=== PATIENT | female | born 1955 | race Caucasian/White ===

== ENCOUNTER 2019-01-08 21:03 | Observation (INO) | payer SELFPAY ==
[~2019-01-08] VITALS: Ht 170.2 cm; Wt 94.4 kg
[2019-01-08] MEDS ORDERED: predniSONE 20 MG TAB PO STA (22:01)
[2019-01-08] MEDS ORDERED: RT-ALBUTEROL/IPRATROPIUM 3 ML (DUONEB) VIAL INH STA (22:01)
[2019-01-08 22:45] LABS: HEMOGLOBIN 13.9 G/DL (11.5-16.0); WHITE BLOOD COUNT 8.2 10^3/uL (4.3-11.0)
[2019-01-08 22:46] LABS: MEAN PLATELET VOLUME 9.1 FL (7.4-10.4); RED CELL DISTRIBUTION WIDTH 12.9 % (10.0-14.5)
--- NOTE | 2019-01-08 23:18 | ED Respiratory ---
General Chief Complaint: Respiratory Problems Stated Complaint: SOB,PASSED OUT, HAS ASTHMA & COPD History of Present Illness Date Seen by Provider: Jan 08, 2019 Time Seen by Provider: 21:51 This is a 63-year-old female with a history of asthma who presents to the emergency department with shortness of breath and syncope. She has had a syncopal episode similar to this in the past although she denies having had a medical workup at that time. She says that she feels like her shortness of breath is caused by her typical asthma exacerbation however she is out of her albuterol so she was not able to treat herself. This occurred while she was at work, it improved after she went into a freezer room, but then when she came out she reportedly put her hand on her coworkers shoulder and collapsed. She did not injure herself. She does not remember having chest pain or palpitations or worsening of her shortness of breath at the time that she syncopized. She has not had bloody or black stools. She denies known congestive heart failure or other heart problems. Again there has not been chest pain with any of this. No headache, no weakness numbness or tingling, no visual change. No other symptoms. Allergies and Home Medications Allergies Coded Allergies: No Known Drug Allergies (Unverified , 01/08/19) Patient Home Medication List Home Medication List Reviewed: Yes Review of Systems Review of Systems Constitutional: no symptoms reported EENTM: no symptoms reported Respiratory: see HPI Cardiovascular: No chest pain; syncope Gastrointestinal: no symptoms reported Genitourinary: no symptoms reported Musculoskeletal: no symptoms reported Skin: no symptoms reported Psychiatric/Neurological: No Symptoms Reported Hematologic/Lymphatic: No Symptoms Reported Immunological/Allergic: no symptoms reported Past Gqsnkzd-Lnzgyw-Deplmy Hx Patient Social History Recent Foreign Travel: No Contact w/Someone Who Travel: No Physical Exam Capillary Refill : Height: '" Weight: lbs. oz. 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, no motor/sensory deficits, alert, normal mood/affect, oriented x 3; No abnormal gait Skin: warm/dry Progress/Results/Core Measures Suspected Sepsis SIRS Temperature: Pulse: Respiratory Rate: Laboratory Tests 01/08/19 22:40: White Blood Count 8.2 Blood Pressure / Mean: Laboratory Tests 01/08/19 22:40: Creatinine 0.87, Platelet Count 297, Total Bilirubin 0.2 Results/Orders Lab Results Laboratory Tests Test 01/08/19 00:40 01/08/19 22:40 Range/Units Troponin T < 6 < 6 <=10 NG/L White Blood Count 8.2 4.3-11.0 10^3/uL Red Blood Count 4.87 4.35-5.85 10^6/uL Hemoglobin 13.9 11.5-16.0 G/DL Hematocrit 43 35-52 % Mean Corpuscular Volume 89 80-99 FL Mean Corpuscular Hemoglobin 29 25-34 PG Mean Corpuscular Hemoglobin Concent 32 32-36 G/DL Red Cell Distribution Width 12.9 10.0-14.5 % Platelet Count 297 130-400 10^3/uL Mean Platelet Volume 9.1 7.4-10.4 FL D-Dimer 0.47 0.00-0.49 UG/ML Sodium Level 138 135-145 MMOL/L Potassium Level 4.4 3.6-5.0 MMOL/L Chloride Level 100 98-107 MMOL/L Carbon Dioxide Level 26 21-32 MMOL/L Anion Gap 12 5-14 MMOL/L Blood Urea Nitrogen 13 7-18 MG/DL Creatinine 0.87 0.60-1.30 MG/DL Estimat Glomerular Filtration Rate > 60 BUN/Creatinine Ratio 15 Glucose Level 113 H 70-105 MG/DL Calcium Level 9.4 8.5-10.1 MG/DL Corrected Calcium 9.1 8.5-10.1 MG/DL Total Bilirubin 0.2 0.1-1.0 MG/DL Aspartate Amino Transf (AST/SGOT) 20 5-34 U/L Alanine Aminotransferase (ALT/SGPT) 15 0-55 U/L Alkaline Phosphatase 72 40-136 U/L Pro-B-Type Natriuretic Peptide 115.2 H <75.0 PG/ML Total Protein 7.3 6.4-8.2 GM/DL Albumin 4.4 3.2-4.5 GM/DL My Orders Orders - ANDRE CELESTIN DO Albuterol/Ipra Inhalation Soln (Duoneb I (01/08/19 22:01) Prednisone Tablet (Deltasone Tablet) (01/08/19 22:01) Svn Small Volume Nebulizer (01/08/19 22:01) Ekg Tracing (01/08/19 22:03) Troponin T (01/08/19:03) Cbc No Diff (01/08/19 22:03) Comprehensive Metabolic Panel (01/08/19 22:03) Probnp Fs (01/08/19 22:03) Chest 1 View Ap/Pa Only (01/08/19 22:05) Ekg Tracing (01/08/19 23:31) Troponin T (01/08/19 23:31) Fibrin Degradation Products (01/08/19 23:42) Albuterol Pre-Mix Nebs (Rt) (Proventil (01/08/19 23:42) Svn Small Volume Nebulizer (01/08/19 23:42) Vital Signs/I&O Capillary Refill : Progress Note #1: Progress Note This is a 63-year-old female with a history of asthma who presents with shortness of breath and syncope. There was only minimal wheezing on exam and for this reason I did become more concerned about alternative etiology for example ACS or PE. She does however feel significant improvement after a breathing treatment and prednisone. She does feel some persistent wheezing and does have a mildly rhonchorous cough, we will give another breathing treatment now. ECG computer interpretation is incorrect, there are obviously P waves, and ventricular rate is no where near 166 bpm, I measure it at 84 bpm. We will repeat this study. It is concerning that it reports a QTC of 521 ms in the setting of syncope which itself occurred without a prodrome. We will make note of this interval on the repeat study. Patient is otherwise low risk for pulmonary embolus and I will send a d-dimer to rule this out. At the minimum based on her syncope without a prodrome she meets criteria for an observation admission, furthermore if there is a persistently prolonged QT interval she obviously needs to be admitted. We will continue to monitor while in the emergency department. Progress Note #2: Progress Note Dr. Patel accepts admission at [facility]. She is okay with cardiology consult being called in the morning. This was placed in written transition orders, as well as repeat ECG upon arrival to accepting facility. ECG EKG : Comment 2225: Sinus rhythm rate of approximately 84 beats per minute. HI interval approximately 160 ms. Left axis deviation. Inferior Q waves. Incomplete right bundle branch block. No ST or T-wave abnormalities. Slightly low voltages without electrical alternans. QTC measured at 521 ms. Diagnostic Imaging Diagonstic Imaging: Xray Comments EP interpretation: Trachea is midline, no obvious abnormality of the ribs, small lucency at the distal and of the left clavicle of uncertain significance. Cardiomediastinal silhouette is within normal limits. Diaphragmatic borders are sharp with no effusions or infiltrates. No obvious infiltrates in the rest of the lung akhtar. No pneumothoraces. Reviewed: Reviewed by Me Departure Impression Primary Impression: Dyspnea Additional Impressions: Syncope Prolonged Q-T interval on ECG Disposition: XFER SHT-TRM HOSP Condition: Stable Transfer Time Spoke to Accepting Phy: 01:10 Transfer Progress Notes Accepted by Dr. Patel at [facility] Method of Transfer: EMS Departure-Patient Inst. Referrals: NATALIA ODOM MD (PCP) Primary Care Physician ANDRE CELESTIN DO Jan 08, 2019 23:18
[2019-01-08 23:21] LABS: ALANINE AMINOTRANSFERASE 15 U/L (0-55); ALKALINE PHOSPHATASE 72 U/L (40-136); BILIRUBIN,TOTAL 0.2 MG/DL (0.1-1.0); BUN/CREATININE RATIO 15; CALCIUM 9.4 MG/DL (8.5-10.1); CARBON DIOXIDE 26 MMOL/L (21-32); CHLORIDE 100 MMOL/L (98-107); CREATININE SERUM 0.87 MG/DL (0.60-1.30); GFR ESTIMATED > 60; GLUCOSE 113 MG/DL (70-105); POTASSIUM 4.4 MMOL/L (3.6-5.0); SODIUM 138 MMOL/L (135-145)
[2019-01-08 23:22] LABS: ALBUMIN 4.4 GM/DL (3.2-4.5); TOTAL PROTEIN 7.3 GM/DL (6.4-8.2)
[2019-01-08] MEDS ORDERED: RT-ALBUTEROL SULF 2.5 MG/3 ML PRE-MIX VIAL INH STA (23:42)
[2019-01-09] VITALS (7 sets, daily range): BP systolic 104–136; BP diastolic 61–73
--- NOTE | 2019-01-09 05:45 | NUR ---
ARON WISE admitted to room 427-1, with an admitting diagnosis of SYNCOPE, on 01/09/19 from ER ([facility]) via cart, accompanied by EMS. ARON WISE introduced to surroundings, call light, bed controls, phone, TV, temperature control, lights, meal times, smoking policy, visitor policy, side rail policy, bathrooms and showers. Patient Rights given to patient in the handbook. ARON WISE verbalizes understanding that [facility] is not responsible for the loss or damage to any personal effects or valuables that are kept in the patients possession during their hospitalization.
--- NOTE | 2019-01-09 07:25 | NUR ---
ATTEMPTED TO PAGE DR. GASPAR TO INFORM HIM OF CONSULT FOR PATIENT. ALSO ATTEMPTED TO PAGE MEI. NO RETURN CALL AT THIS TIME. INFORMED DAY SHIFT THAT CHASITY WAS NOT REACHED.
--- NOTE | 2019-01-09 07:28 | Diagnostic Imaging Report ---
INDICATION: Shortness of breath. FINDINGS: Heart size is normal. The mediastinum is unremarkable. No pleural effusion, pneumothorax or pneumonia. IMPRESSION: No acute cardiopulmonary abnormality. Dictated by: Dictated on workstation # [id number]
[2019-01-09] MEDS ORDERED: RT-ALBUTEROL SULF 2.5 MG/3 ML PRE-MIX VIAL IH PRN (08:00)
[2019-01-09] MEDS ORDERED: CATHETER FLUSH 10 ML SYR IV PRN (08:15)
--- NOTE | 2019-01-09 09:14 | History & Physicial (CHS) ---
HPI History of Present Illness: 63 yo female brought to ER after episode of syncope. She states she has asthma and was feeling some shortness of breath coming on while at work, so she stepped into the freezer to clear her lungs, took a few breaths in there and then stepped out and does not recall what happened next, woke up to her coworkers having caught her falling down. She denies loss of urine or bowels. She does not know how long she was out. She denies any chest pain or palpitations and had no dizziness prior to the episode. She has had this happen once several years ago and was seen in an ER and discharged from there. She is out of her asthma inhalers. Date seen by provider: Jan 09, 2019 Time Seen by Provider: 09:10 Attending Physician Cj Patel MD PCP Ced Vee MD Consult Date of Admission Jan 09, 2019 at 01:46 Home Medications Home Medications Reviewed patient Home Medication Reconciliation performed by pharmacy medication reconciliations medical technician assistant and/or nursing. Patients Allergies have been reviewed. Allergies Coded Allergies: No Known Drug Allergies (Unverified , 01/08/19) NWD-Jjnsep-Aajmrd Hx Patient Social History Recent Foreign Travel: No Contact w/other who traveled: No Recent Infectious Disease Expo: No Past Medical History PMHx: Asthma Constipation SurgHx: Family Medical History Family History: Patient reports no known family medical history. Review of Systems ([facility]) Constitutional: No fever EENTM: No nose congestion Respiratory: see HPI Cardiovascular: No chest pain, No palpitations Gastrointestinal: No abdominal pain, No diarrhea, No nausea, No vomiting Genitourinary: no symptoms reported Musculoskeletal: no symptoms reported Skin: No rash Psychiatric/Neurological: No Symptoms Reported Reviewed Test Results Reviewed Test Results Lab Laboratory Tests Test 01/08/19 00:40 01/08/19 22:40 01/09/19 06:51 01/09/19 12:05 Range/Units Troponin T < 6 < 6 <=10 NG/L White Blood Count 8.2 4.3-11.0 10^3/uL Red Blood Count 4.87 4.35-5.85 10^6/uL Hemoglobin 13.9 11.5-16.0 G/DL Hematocrit 43 35-52 % Mean Corpuscular Volume 89 80-99 FL Mean Corpuscular Hemoglobin 29 25-34 PG Mean Corpuscular Hemoglobin Concent 32 32-36 G/DL Red Cell Distribution Width 12.9 10.0-14.5 % Platelet Count 297 130-400 10^3/uL Mean Platelet Volume 9.1 7.4-10.4 FL D-Dimer 0.47 0.00-0.49 UG/ML Sodium Level 138 135-145 MMOL/L Potassium Level 4.4 3.6-5.0 MMOL/L Chloride Level 100 98-107 MMOL/L Carbon Dioxide Level 26 21-32 MMOL/L Anion Gap 12 5-14 MMOL/L Blood Urea Nitrogen 13 7-18 MG/DL Creatinine 0.87 0.60-1.30 MG/DL Estimat Glomerular Filtration Rate > 60 BUN/Creatinine Ratio 15 Glucose Level 113 H 70-105 MG/DL Calcium Level 9.4 8.5-10.1 MG/DL Corrected Calcium 9.1 8.5-10.1 MG/DL Total Bilirubin 0.2 0.1-1.0 MG/DL Aspartate Amino Transf (AST/SGOT) 20 5-34 U/L Alanine Aminotransferase (ALT/SGPT) 15 0-55 U/L Alkaline Phosphatase 72 40-136 U/L Pro-B-Type Natriuretic Peptide 115.2 H <75.0 PG/ML Total Protein 7.3 6.4-8.2 GM/DL Albumin 4.4 3.2-4.5 GM/DL Troponin I < 0.028 < 0.028 <0.028 NG/ML Radiology CXR 01/08: no acute abnormalities Physical Exam-(CHC) Physical Exam Vital Signs VS - Last 72 Hours, by Label 01/08/19 01/09/19 01/09/19 01/09/19 22:45 03:38 05:45 05:45 Temp 98.3 97.9 97.9 Pulse 97 78 68 Resp 16 16 16 B/P (MAP) 147/68 (94) 108/58 (75) 124/68 (86) Pulse Ox 95 97 95 95 O2 Delivery Room Air Room Air 01/09/19 01/09/19 01/09/19 01/09/19 06:18 06:21 06:41 07:00 Temp 98.2 98.2 Pulse 69 69 86 91 Resp 18 18 B/P (MAP) 117/61 117/61 (79) Pulse Ox 94 94 O2 Delivery Room Air Room Air 01/09/19 01/09/19 01/09/19 01/09/19 08:00 08:00 12:00 12:53 Temp 97.9 98.3 Pulse 82 85 88 Resp 18 20 B/P (MAP) 136/73 (94) 121/71 (88) Pulse Ox 94 94 92 O2 Delivery Room Air Room Air Room Air 01/09/19 15:52 Temp 97.2 Pulse 75 Resp 20 B/P (MAP) 114/73 (87) Pulse Ox 95 O2 Delivery Room Air Capillary Refill : Less Than 3 Seconds General Appearance: WD/WN, no apparent distress HEENT: PERRL/EOMI Respiratory: lungs clear, normal breath sounds Cardiovascular: regular rate, rhythm, no murmur Gastrointestinal: normal bowel sounds, non tender, soft Extremities: no pedal edema 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 Per ER, had prolonged QT on EKG and is not on any medications to cause this. Cardiology consulted, appreciate recommendations. (2) Asthma Status: Chronic Assessment & Plan: Albuterol prn, no clear evidence of exacerbation currently. (3) DVT prophylaxis Status: Acute Assessment & Plan: Enoxaparin Clinical Quality Measures DVT/VTE Risk/Contraindication: Risk Factor Score Per Nursin RFS Level Per Nursing on Admit: 4+=Very High CJ PATEL MD Jan 09, 2019 09:14
--- NOTE | 2019-01-09 09:29 | NUR ---
PATIENT STATES SHE IS NOT CURRENTLY TAKING ANY MEDICATION, PRESCRIPTION OR OTC.
[2019-01-09] MEDS ORDERED: FLU QUADRIvalent (5+ YOA) 2018-2019 (AFLURIA) 0.5 ML IM ONE (10:45)
[2019-01-09] MEDS: ENOXAPARIN 40 MG/0.4 ML (LOVENOX) SYR SQ SCH (13:37)
--- NOTE | 2019-01-09 13:37 | Consultation-Cardiology ---
HPI-Cardiology Cardiology Consultation: Date of Consultation 01/09/19 Time Seen by a Provider: 13:00 Date of Admission 01-08-19 Attending Physician Kaci Patel MD Admitting Physician Ced Vee MD Consulting Physician Hansa Healy MD HPI: Chief Complaint: Syncope Ms. Wise is a 63 year old female transferred to [facility] from the [facility] ED. She reports she has chronic dyspnea. She states she has had increasing SOB over the last few days with frequent cough. She states while at work last night she began to feel more SOB. She states she went into the walk in freezer at work. She has chronic asthma/COPD. She states the building in which she works was hot last night and when she feels she having asthma attacks she will go into the freezer and her symptoms will improve. She states it did help for a short period of time, but then she began to cough, felt warm and was unable to catch her breath. She reports she felt as though she was going to pass out. She reports a co-worker caught her and lowered her into a chair. She states she may have lost consciousness for approx 30 seconds, but she is unsure. No loss of bowel or bladder control. She denies any c/o CP, palpitations, loss of bowel of bladder control. No c/o LE swelling. She reports she has been prescribed inhalers, but can not afford them. She takes no medications. She reports she smokes approx 1/2 PPD of cigs. Review of Systems-Cardiology Review of Systems Constitutional: No chills, No fever Eyes: No vision change Ears/Nose/Throat: No epistaxis, No recent hearing loss Cardiovascular: As described under HPI Gastrointestinal: No constipation, No diarrhea, No nausea, No vomiting Genitourinary: No dysuria, No hematuria Musculoskeletal: other (chronic joint pain) Skin: No rash, No ulcerations Psychiatric/Neurological: As described under HPI; No anxiety, No depression, No seizure, No focal weakness Hematologic: No bleeding abnormalities [id number]-Rshjgb Hx Patient Social History Recent Foreign Travel: No Recent Infectious Disease Expo: No Hospitalization with Isolation: Denies Past Medical History PMH As described under Assessment. Family Medical History Family Medical History: No family h/o CAD. Family History: Patient reports no known family medical history. Allergies and Home Medications Allergies Coded Allergies: No Known Drug Allergies (Unverified , 01/08/19) Home Medications No Active Prescriptions or Reported Meds Patient Home Medication List Home Medication List Reviewed: Yes Physical Exam-Cardiology Physical Exam Vital Signs/I&O 01/09/19 01/09/19 01/10/19 01/10/19 19:49 20:05 00:31 01:00 Temp 97.7 98.7 Pulse 78 71 70 Resp 20 16 B/P (MAP) 104/68 (80) 117/65 (82) Pulse Ox 96 95 O2 Delivery Room Air Room Air Room Air 01/10/19 04:04 Temp 96.4 Pulse 78 Resp 18 B/P (MAP) 109/58 (75) Pulse Ox 95 O2 Delivery Room Air 01/10/19 00:00 Intake Total 3850 ml Output Total 1500 ml Balance 2350 ml Capillary Refill : Less Than 3 Seconds Constitutional: AAO x 3, well-developed, well-nourished HEENT: PERRL, oral hygience is good Neck: No carotid bruit; carotid pulses are 2 + bilaterally Respiratory: No accessory muscle use, No respiratory distress; chest expansion is symmetric, chest is bilaterally symmetric, rhonchi (scattered), other ( prolonged expiratory phase) Cardiovascular: regular rate-rhythm; No JVD; S1 and S2 Gastrointestinal: No tender; soft, round, audible bowel sounds Rectal: deferred Extremities: no lower extremity edema bilateral Neurologic/Psychiatric: grossly intact, power is 5/5 both on sides Skin: No rash, No ulcerations Data Review Labs Laboratory Tests 01/09/19 12:05: Troponin I < 0.028 01/10/19 04:35: White Blood Count 8.8, Red Blood Count 4.14L, Hemoglobin 11.7, Hematocrit 37, Mean Corpuscular Volume 90, Mean Corpuscular Hemoglobin 28, Mean Corpuscular Hemoglobin Concent 32, Red Cell Distribution Width 13.3, Platelet Count 244, Mean Platelet Volume 9.7, Neutrophils (%) (Auto) 69, Lymphocytes (%) (Auto) 21, Monocytes (%) (Auto) 8, Eosinophils (%) (Auto) 2, Basophils (%) (Auto) 0, Neutrophils # (Auto) 6.1, Lymphocytes # (Auto) 1.8, Monocytes # (Auto) 0.7, Eosinophils # (Auto) 0.1, Basophils # (Auto) 0.0, Sodium Level 141, Potassium Level 4.1, Chloride Level 109H, Carbon Dioxide Level 23, Anion Gap 9, Blood Urea Nitrogen 23H, Creatinine 0.83, Estimat Glomerular Filtration Rate > 60, BUN /Creatinine Ratio 28, Glucose Level 92, Calcium Level 9.1, Corrected Calcium 9.5 , Total Bilirubin 0.2, Aspartate Amino Transf (AST/SGOT) 17, Alanine Aminotransferase (ALT/SGPT) 11, Alkaline Phosphatase 55, Total Protein 5.7L, Albumin 3.5 Radiology NAME: ARON WISE MED REC#: [id number] PT STATUS: ADM Treva : 1955 PHYSICIAN: ANDRE CELESTIN DO ADMIT DATE: 01/09/19 Signed Date of Exam: 01/08/19 CHEST 1 VIEW AP/PA ONLY INDICATION: Shortness of breath. FINDINGS: Heart size is normal. The mediastinum is unremarkable. No pleural effusion, pneumothorax or pneumonia. IMPRESSION: No acute cardiopulmonary abnormality. Dictated by: Dictated on workstation # [id number] Dict: 01/09/19715 Trans: 01/09/19 0846 Interpreted by: ANNETTA CARRENO MD Electronically signed by: ANNETTA CARRENO MD 01/09/19 0846 ECG Impression ECG Initial ECG Rhythm: Normal Sinus Comment QT 408, QTc 444 A/P-Cardiology Assessment/Admission Diagnosis Syncopal episode of undetermined etiology Chest discomfort - no evidence of ACS Acute on chronic exacerbation of COPD Asthma Tobaccoism - cessation advised Non-compliance with medications Elevated BMI approx 33 Discussion and Recomendations Syncopal episode - possible cough syncope Chest tightness - no evidence of ACS Acute on chronic exacerbation of COPD/asthma - management per medical services Tobaccoism - cessation advised Monitor lab Further recs will be based on her hospital course We would like to thank medical services for this consult Clinical Quality Measures DVT/VTE Risk/Contraindication: Risk Factor Score Per Nursin RFS Level Per Nursing on Admit: 4+=Very High MEI [id number] Jan 09, 2019 13:37
[2019-01-09] MEDS: CATHETER FLUSH 10 ML SYR IV SCH ×2 (14:34→20:08)
--- NOTE | 2019-01-09 18:44 | Consultation-Cardiology ---
HPI-Cardiology Cardiology Consultation: Date of Consultation 01/09/19 Time Seen by a Provider: 18:10 Date of Admission Attending Physician Kaci Patel MD Admitting Physician Ced Vee MD Consulting Physician SHER GASPAR MD, MA, FACP, FACC, FSCAI, CCDS HPI: Chief Complaint: Syncope Ms. Alvarez is a 63 year old female transferred to [facility] from the [facility] ED. She reports she has chronic dyspnea. She states she has had increasing SOB over the last few days with frequent cough. She states while at work last night she began to feel more SOB. She states she went into the walk in freezer at work. She has chronic asthma/COPD. She states the building in which she works was hot last night and when she feels she having asthma attacks she will go into the freezer and her symptoms will improve. She states it did help for a short period of time, but then she began to cough, felt warm and was unable to catch her breath. She reports she felt as though she was going to pass out. She reports a co-worker caught her and lowered her into a chair. She states she may have lost consciousness for approx 30 seconds, but she is unsure. No loss of bowel or bladder control. She denies any c/o CP, palpitations, loss of bowel of bladder control. No c/o LE swelling. She reports she has been prescribed inhalers, but can not afford them. She takes no medications. She reports she smokes approx 1/2 PPD of cigs. Review of Systems-Cardiology Review of Systems Constitutional: No chills, No fever Eyes: No vision change Ears/Nose/Throat: No epistaxis, No recent hearing loss Cardiovascular: As described under HPI Gastrointestinal: No constipation, No diarrhea, No nausea, No vomiting Genitourinary: No dysuria, No hematuria Musculoskeletal: other (chronic joint pain) Skin: No rash, No ulcerations Psychiatric/Neurological: As described under HPI; No anxiety, No depression, No seizure, No focal weakness Hematologic: No bleeding abnormalities HJD-Utgvwz-Ssvrib Hx Patient Social History Recent Foreign Travel: No Recent Infectious Disease Expo: No Hospitalization with Isolation: Denies Past Medical History PMH As described under Assessment. Family Medical History Family Medical History: No family h/o CAD. Family History: Patient reports no known family medical history. Allergies and Home Medications Allergies Coded Allergies: No Known Drug Allergies (Unverified , 01/08/19) Home Medications No Active Prescriptions or Reported Meds Patient Home Medication List Home Medication List Reviewed: Yes Physical Exam-Cardiology Physical Exam Vital Signs/I&O 01/09/19 01/09/19 01/09/19 01/09/19 07:00 08:00 08:00 12:00 Temp 97.9 98.3 Pulse 91 82 85 Resp 18 20 B/P (MAP) 136/73 (94) 121/71 (88) Pulse Ox 94 94 92 O2 Delivery Room Air Room Air Room Air 01/09/19 01/09/19 12:53 15:52 Temp 97.2 Pulse 88 75 Resp 20 B/P (MAP) 114/73 (87) Pulse Ox 95 O2 Delivery Room Air Capillary Refill : Less Than 3 Seconds Constitutional: AAO x 3, well-developed, well-nourished HEENT: PERRL, oral hygience is good Neck: No carotid bruit; carotid pulses are 2 + bilaterally Respiratory: No accessory muscle use, No respiratory distress; chest expansion is symmetric, chest is bilaterally symmetric, rhonchi (scattered), other ( prolonged expiratory phase) Cardiovascular: regular rate-rhythm; No JVD; S1 and S2 Gastrointestinal: No tender; soft, round, audible bowel sounds Rectal: deferred Extremities: no lower extremity edema bilateral Neurologic/Psychiatric: grossly intact, power is 5/5 both on sides Skin: No rash, No ulcerations Data Review Labs Laboratory Tests 01/08/19 22:40: White Blood Count 8.2, Red Blood Count 4.87, Hemoglobin 13.9, Hematocrit 43, Mean Corpuscular Volume 89, Mean Corpuscular Hemoglobin 29, Mean Corpuscular Hemoglobin Concent 32, Red Cell Distribution Width 12.9, Platelet Count 297, Mean Platelet Volume 9.1, D-Dimer 0.47, Sodium Level 138, Potassium Level 4.4, Chloride Level 100, Carbon Dioxide Level 26, Anion Gap 12, Blood Urea Nitrogen 13, Creatinine 0.87, Estimat Glomerular Filtration Rate > 60, BUN/Creatinine Ratio 15, Glucose Level 113H, Calcium Level 9.4, Corrected Calcium 9.1, Total Bilirubin 0.2, Aspartate Amino Transf (AST/SGOT) 20, Alanine Aminotransferase ( ALT/SGPT) 15, Alkaline Phosphatase 72, Troponin T < 6, Pro-B-Type Natriuretic Peptide 115.2H, Total Protein 7.3, Albumin 4.4 01/09/19 06:51: Troponin I < 0.028 01/09/19 12:05: Troponin I < 0.028 A/P-Cardiology Assessment/Admission Diagnosis Syncopal episode of undetermined etiology Chest discomfort - no evidence of ACS Acute on chronic exacerbation of COPD Asthma Tobaccoism - cessation advised Non-compliance with medications Elevated BMI approx 33 Discussion and Recomendations Syncopal episode - possible cough syncope Chest tightness - no evidence of ACS Acute on chronic exacerbation of COPD/asthma - management per medical services Tobaccoism - cessation advised MPI to eval for ischemia Monitor lab Further recs will be based on her hospital course We would like to thank medical services for this consult Clinical Quality Measures DVT/VTE Risk/Contraindication: Risk Factor Score Per Nursin RFS Level Per Nursing on Admit: 4+=Very High SHER GASPAR MD FACP FAC CCDS Jan 09, 2019 18:44
[2019-01-09] MEDS ORDERED: REGADENOSON 0.4 MG/5 ML SYR (LEXISCAN) IV ONE (18:45)
[2019-01-10 00:31] VITALS: BP 117/65
[2019-01-10 04:04] VITALS: BP 109/58
[2019-01-10 04:51] LABS: BASOPHILS % (AUTO) 0 % (0-10); EOSINOPHILS # (AUTO) 0.1 10^3/uL (0.0-0.3); EOSINOPHILS % (AUTO) 2 % (0-10); HEMATOCRIT 37 % (35-52); HEMOGLOBIN 11.7 G/DL (11.5-16.0); LYMPHOCYTES # (AUTO) 1.8 X 10^3 (1.0-4.0); LYMPHOCYTES % (AUTO) 21 % (12-44); MEAN CORPUSCULAR HEMOGLOBIN 28 PG (25-34); MEAN CORPUSCULAR HGB CONC 32 G/DL (32-36); MEAN CORPUSCULAR VOLUME 90 FL (80-99); MEAN PLATELET VOLUME 9.7 FL (7.4-10.4); MONOCYTES # (AUTO) 0.7 X 10^3 (0.0-1.0); MONOCYTES % (AUTO) 8 % (0-12); NEUTROPHILS # (AUTO) 6.1 X 10^3 (1.8-7.8); NEUTROPHILS % (AUTO) 69 % (42-75); PLATELET COUNT 244 10^3/uL (130-400); RED CELL DISTRIBUTION WIDTH 13.3 % (10.0-14.5); WHITE BLOOD COUNT 8.8 10^3/uL (4.3-11.0)
[2019-01-10 05:10] LABS: ALANINE AMINOTRANSFERASE 11 U/L (0-55); ALBUMIN 3.5 GM/DL (3.2-4.5); ALKALINE PHOSPHATASE 55 U/L (40-136); BILIRUBIN,TOTAL 0.2 MG/DL (0.1-1.0); BUN/CREATININE RATIO 28; CALCIUM 9.1 MG/DL (8.5-10.1); CARBON DIOXIDE 23 MMOL/L (21-32); CHLORIDE 109 MMOL/L (98-107); CREATININE SERUM 0.83 MG/DL (0.60-1.30); GFR ESTIMATED > 60; GLUCOSE 92 MG/DL (70-105); POTASSIUM 4.1 MMOL/L (3.6-5.0); SODIUM 141 MMOL/L (135-145); TOTAL PROTEIN 5.7 GM/DL (6.4-8.2)
[2019-01-10] MEDS: CATHETER FLUSH 10 ML SYR IV SCH (06:46)
[2019-01-10] MEDS ORDERED: REGADENOSON 0.4 MG/5 ML SYR (LEXISCAN) IV ONE (08:45)
[2019-01-10 09:18] VITALS: BP 119/67
[2019-01-10 09:24] VITALS: BP 111/83
[2019-01-10 09:25] VITALS: BP 107/85
--- NOTE | 2019-01-10 10:02 | Progress Note-Cardiology ---
Cardiology SOAP Progress Note Subjective: Wants to go home. No further c/o syncope. Feels breathing is at her usual baseline. No c/o CP or palpitations. Objective: I&O/Vital Signs 01/10/19 01/10/19 01/10/19 01/10/19 00:31 01:00 04:04 07:03 Temp 98.7 96.4 Pulse 71 70 78 64 Resp 16 18 B/P (MAP) 117/65 (82) 109/58 (75) Pulse Ox 95 95 O2 Delivery Room Air Room Air 01/10/19 01/10/19 01/10/19 09:18 09:24 09:25 Pulse 61 87 77 Resp 18 18 18 B/P (MAP) 119/67 (84) 111/83 (92) 107/85 (92) Pulse Ox 96 96 96 O2 Delivery Room Air Room Air Room Air 01/10/19 00:00 Intake Total 3850 ml Output Total 1500 ml Balance 2350 ml Weight (Pounds): 208 Weight (Ounces): 1.0 Weight (Calculated Kilograms): 94.689670 Constitutional: AAO x 3, well-developed, well-nourished Respiratory: No accessory muscle use, No respiratory distress; chest expansion is symmetric, chest is bilaterally symmetric, rhonchi (scattered), other ( prolonged expiratory phase) Cardiovascular: regular rate-rhythm; No JVD; S1 and S2 Gastrointestional: No tender; soft, round, audible bowel sounds Extremities: no lower extremity edema bilateral Neurologic/Psychiatric: grossly intact, power is 5/5 both on sides Skin: No rash, No ulcerations Results/Procedures: Labs Laboratory Tests 01/09/19 12:05: Troponin I < 0.028 01/10/19 04:35: White Blood Count 8.8, Red Blood Count 4.14L, Hemoglobin 11.7, Hematocrit 37, Mean Corpuscular Volume 90, Mean Corpuscular Hemoglobin 28, Mean Corpuscular Hemoglobin Concent 32, Red Cell Distribution Width 13.3, Platelet Count 244, Mean Platelet Volume 9.7, Neutrophils (%) (Auto) 69, Lymphocytes (%) (Auto) 21, Monocytes (%) (Auto) 8, Eosinophils (%) (Auto) 2, Basophils (%) (Auto) 0, Neutrophils # (Auto) 6.1, Lymphocytes # (Auto) 1.8, Monocytes # (Auto) 0.7, Eosinophils # (Auto) 0.1, Basophils # (Auto) 0.0, Sodium Level 141, Potassium Level 4.1, Chloride Level 109H, Carbon Dioxide Level 23, Anion Gap 9, Blood Urea Nitrogen 23H, Creatinine 0.83, Estimat Glomerular Filtration Rate > 60, BUN /Creatinine Ratio 28, Glucose Level 92, Calcium Level 9.1, Corrected Calcium 9.5 , Total Bilirubin 0.2, Aspartate Amino Transf (AST/SGOT) 17, Alanine Aminotransferase (ALT/SGPT) 11, Alkaline Phosphatase 55, Total Protein 5.7L, Albumin 3.5 Laboratory Tests 01/08/19 22:40 01/10/19 04:35 A/P: Assessment: Syncopal episode of undetermined etiology - no further episodes Chest discomfort - no evidence of ACS Acute on chronic exacerbation of COPD Asthma Tobaccoism - cessation advised Non-compliance with medications Elevated BMI approx 33 Plan: Syncopal episode - possible cough syncope - no further episodes Chest tightness - no evidence of ACS - MPI pending Acute on chronic exacerbation of COPD/asthma - management per medical services Tobaccoism - cessation advised MEI RODRIGEZ Jan 10, 2019 10:02
[2019-01-10] MEDS ORDERED: RT-ALBUINH IH (11:27)
[2019-01-10 12:00] VITALS: BP 132/67
[2019-01-10] MEDS: ENOXAPARIN 40 MG/0.4 ML (LOVENOX) SYR SQ SCH (13:09)
--- NOTE | 2019-01-10 14:15 | Discharge Instructions ---
Discharge [facility] Discharge Medications New, Converted or Re-Newed RX: Transmitted to Pharmacy New Medications: Albuterol Sulfate (Proair Hfa) 1 Puff Puff 2 PUFF IH Q4H PRN for SHORTNESS OF BREATH, #1 INHALER 0 Refills 1 PUFF = 90 MCG Patient Instructions Goal/Follow Up Appt: Follow up with Dr. Vee on 01/14 at 9:45 am. 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 Return to The Hospital For: Worsening shortness of breath, chest pain, recurrent passing out Activity & Diet Discharge Diet: Regular Diet Activity as Tolerated: Yes Orders-Post D/C & Referrals Pneu Vac Indicated: Yes Copy Copies To 1: NATALIA VEE MD, BETHANY N MD Jan 10, 2019 11:28
--- NOTE | 2019-01-10 16:16 | NUR ---
At Discharge, spoke to patient about importance of smoking cesseation. Patient dismissive with information. Pages send to Dr. Healy and Birdie Grubbs before discharge. Spoke with Dr. Healy, who requests that patient should follow up with him in 2 to 3 weeks and that stress test was clear. Information relayed to patient.
--- NOTE | 2019-01-10 18:57 | Discharge Summary ---
Diagnosis/Chief Complaint Date of Admission Jan 09, 2019 at 01:46 Date of Discharge Jan 10, 2019 at 15:50 Admission Diagnosis Admission Diagnosis Syncope Discharge Diagnosis See problem list Problems/Diagnosis: (1) Syncope Assessment & Plan: Unclear etiology, concerning for possible cardiac cause given no presyncopal symptoms, however no clear evidence of cardiac issue either , troponin neg, BNP unremarkable and asymptomatic. Per ER, had prolonged QT on EKG and is not on any medications to cause this. Cardiology consulted, stress test completed, no evidence of cardiac cause, suspect possible cough syncope. Status: Acute (2) Asthma Assessment & Plan: Albuterol prn, no clear evidence of exacerbation currently. Stated she could not afford albuterol inhaler, vouchered at [facility] on d/c. Status: Chronic Chief Complaint/HPI Chief Complaint/HPI 63 yo female brought to ER after episode of syncope. She states she has asthma and was feeling some shortness of breath coming on while at work, so she stepped into the freezer to clear her lungs, took a few breaths in there and then stepped out and does not recall what happened next, woke up to her coworkers having caught her falling down. She denies loss of urine or bowels. She does not know how long she was out. She denies any chest pain or palpitations and had no dizziness prior to the episode. She has had this happen once several years ago and was seen in an ER and discharged from there. She is out of her asthma inhalers. Discharge Summary-Simple/Stand Consultations Discharge Physical Examination Allergies: Coded Allergies: No Known Drug Allergies (Unverified , 01/08/19) Vitals & I&Os Vital Sign - Last 12Hours Date Time Temp Pulse Resp B/P (MAP) Pulse Ox O2 Delivery O2 Flow Rate FiO2 01/10/19 12:00 96.4 73 18 132/67 (88) 97 Room Air Intake and Output 01/10/19 00:00 Intake Total 3850 ml Output Total 1500 ml Balance 2350 ml General Appearance: Alert, No Acute Distress Respiratory: Clear to Auscultation, Normal Air Movement Cardiovascular: Regular Rate, No Murmurs Neuro: Normal Speech Psych/Mental Status: Mental Status NL Hospital Course Was the Problem List Reviewed?: Yes See final discharge diagnosis. Radiology Reviewed CXR 01/08: no acute abnormalities Discharge Instructions to patient/family Please see electronic discharge instructions given to patient. Discharge Medications Reviewed and agree with Discharge Medication list on patient's Discharge Instruction sheet Clinical Quality Measures DVT/VTE Risk/Contraindication: Risk Factor Score Per Nursin RFS Level Per Nursing on Admit: 4+=Very High Copy Copies To 1: NATALIA ODOM MD, BETHANY N MD Jan 10, 2019 18:57
--- NOTE | 2019-01-10 22:37 | STRESS TEST ---
DATE OF SERVICE: 01/10/2019 RESTING AND POST REGADENOSON TECHNETIUM-99M TETROFOSMIN SPECT CT IMAGING Baseline images were carried out after injection of 10.95 mCi of technetium-99m Tetrofosmin. This was followed by 0.4 mg of adenosine and 31.5 mCi of technetium-99m Tetrofosmin for stress imaging. The electrocardiogram showed sinus rhythm at baseline. It did not change significantly with the regadenoson infusion. The patient tolerated the procedure well. She noted some shortness of breath following regadenoson infusion, which resolved in a few minutes. Review of images at rest and following stress does not indicate any significant perfusion defects consistent with significant myocardial ischemia or infarction. Gated images show normal global left ventricular systolic function and normal regional wall motion. Left ventricular ejection fraction is calculated to be 77%. Left ventricular end diastolic volume is 40 mL. TID is absent (1.05). CONCLUSIONS: 1. No evidence of any significant myocardial ischemia or infarction. 2. Normal regional wall motion. 3. Normal global left ventricular systolic function with a calculated ejection fraction of 77%. Job ID: [id number] DocumentID: [id number] Dictated Date: 01/10/2019 16:02:09 [employer] Date: 01/10/2019 22:36:55 Dictated By: SHER GASPAR MD, MA, FACP, FACC,
== END 2019-01-10 14:14 | disposition home or self-care (01) ==
LOC: ER FS 21:05 → 4TH 21:06 → UNDOADMOB 01-09 01:46 → UNDODISOB 01-10 15:50
PROVIDERS: ADMIT Family Medicine; ATTEND Family Medicine
DX: R55 Syncope and collapse (principal); I45.81 Long QT syndrome; J45.909 Unspecified asthma, uncomplicated; F17.210 Nicotine dependence, cigarettes, uncomplicated; R07.89 Other chest pain; Z91.120 Patient's intentional underdosing of medication regimen due to financial hardship; Z79.899 Other long term (current) drug therapy
CPT/HCPCS: 36415; 71045; 78452; 80053; 83880; 84484; 85025; 85027; 85379; 93005; 93017

== ENCOUNTER 2019-04-24 21:52 | Emergency (ER) | payer SELFPAY ==
[~2019-04-24] VITALS: Ht 170.2 cm; Wt 85.7 kg
[~2019-04-24 21:52] MED LIST: RT-ALBUINH IH
[2019-04-24] MEDS ORDERED: diphenhydrAMINE 25 MG TAB (BENADRYL) PO ONE (22:15)
[2019-04-24] MEDS ORDERED: predniSONE 20 MG TAB PO ONE (22:15)
[2019-04-24] MEDS ORDERED: FAMOTIDINE 20 MG (PEPCID) TABLET PO ONE (22:15)
[2019-04-24] MEDS ORDERED: DEXAMETHASONE 10 MG/ML (DECADRON) 1 ML VIAL IM ONE (22:15)
--- NOTE | 2019-04-24 22:16 | ED Integumentary General ---
General Chief Complaint: Allergic Reaction Stated Complaint: HIVES/RASH ON EYES Nursing Triage Note: Patient advises she was working out in the yard today and this evening began to develop a rash on her arms and face. She believes she may have poision yola. Source: patient, RN notes reviewed Exam Limitations: no limitations History of Present Illness Date Seen by Provider: Apr 24, 2019 Time Seen by Provider: 22:10 Initial Comments Patient presents c/ c/o worsening rash on her face and arms this evening. States she had been out working in her yard earlier today and may have got into some poison yola. Timing/Duration: this evening Severity: moderate Location: extremities (BUE) Possible Cause: other (? poison yola) Modifying Factors: improves with other (none) Associated Symptoms: denies symptoms (x/ as noted.), rash Allergies and Home Medications Allergies Coded Allergies: No Known Drug Allergies (Unverified , 01/08/19) Home Medications Albuterol Sulfate 1 Puff Puff, 2 PUFF IH Q4H PRN for SHORTNESS OF BREATH 1 PUFF = 90 MCG Prescribed by: CJ EDWARDS on 01/10/19 1127 Famotidine 20 Mg Tablet, 20 MG PO BID Prescribed by: ANNA MARIE ORTEGA on 04/25/19 0028 Prednisone 20 Mg Tab, 30 MG PO BID Prescribed by: ANNA MARIE ORTEGA on 04/25/19 0028 Patient Home Medication List Home Medication List Reviewed: Yes Review of Systems Review of Systems Constitutional: see HPI Skin: see HPI, rash All Other Systems Reviewed Negative Unless Noted: Yes (Negative excepted noted.) Past Pouqxvd-Ubzjyw-Asjyzi Hx Patient Social History Alcohol Use: Denies Use Recreational Drug Use: No Smoking Status: Current Everyday Smoker Type Used: Cigarettes Recent Foreign Travel: No Contact w/Someone Who Travel: No Recent Infectious Disease Expo: No Recent Hopitalizations: No Seasonal Allergies Seasonal Allergies: No Past Medical History Surgeries: Yes Section, Tubal Ligation Respiratory: Yes Asthma, COPD Cardiac: No Neurological: No Genitourinary: No Gastrointestinal: No Musculoskeletal: No Endocrine: No HEENT: No Cancer: No Psychosocial: No Integumentary: No Blood Disorders: No Family Medical History Patient reports no known family medical history. Physical Exam Vital Signs Vital Signs - First Documented 04/24/19 22:01 Temp 98.2 Pulse 84 Resp 14 B/P (MAP) 130/72 (91) Pulse Ox 98 O2 Delivery Room Air Capillary Refill : Less Than 3 Seconds General Appearance: WD/WN, no apparent distress, obese HEENT: other (urticarial appearing rash over majority of her face) Neck: normal inspection Cardiovascular: regular rate, rhythm Respiratory: no respiratory distress Extremities: other (urticarial rash of her BUE) Neurologic/Psychiatric: no motor/sensory deficits, alert, normal mood/affect, oriented x 3 Skin: warm/dry, rash (as described above) Skin Problem Location: face, upper extremities Skin Problem Character: blanching, erythema, urticarial Progress/Results/Core Measures Results/Orders My Orders Orders - ANNA MARIE ORTEGA DO Diphenhydramine Tablet (Benadryl Tablet) (04/24/19 22:15) Prednisone Tablet (Deltasone Tablet) (04/24/19 22:15) Famotidine Tablet (Pepcid Tablet) (04/24/19 22:15) Dexamethasone Injection (Decadron Inject (04/24/19 22:15) Medications Given in ED Current Medications Medications Dose Ordered Sig/Lisa Route Start Time Stop Time Status Last Admin Dose Admin Dexamethasone Sodium Phosphate 15 mg ONCE ONCE IM 04/24/19 22:15 04/24/19 22:16 DC 04/24/19 22:19 15 MG Diphenhydramine HCl 50 mg ONCE ONCE PO 04/24/19 22:15 04/24/19 22:16 DC 04/24/19 22:19 50 MG Famotidine 40 mg ONCE ONCE PO 04/24/19 22:15 04/24/19 22:16 DC 04/24/19 22:20 40 MG Prednisone 60 mg ONCE ONCE PO 04/24/19 22:15 04/24/19 22:16 DC 04/24/19 22:20 60 MG Vital Signs/I&O 04/24/19 04/24/19 22:01 23:39 Temp 98.2 98.2 Pulse 84 84 Resp 14 14 B/P (MAP) 130/72 (91) 130/72 (91) Pulse Ox 98 98 O2 Delivery Room Air Room Air Blood Pressure Mean: 91 Departure Impression Primary Impression: Urticaria Disposition: 01 HOME, SELF-CARE Condition: Improved Departure-Patient Inst. Decision time for Depature: 23:24 Referrals: NATALIA ODOM MD (PCP/Family) Primary Care Physician Patient Instructions: Hives Add. Discharge Instructions: All discharge instructions reviewed with patient and/or family. Voiced understanding. MAY REPEAT 50 mg OF BENADRYL EVERY 6 HOURS NEEDED. Scripts Famotidine (Pepcid) 20 Mg Tablet 20 MG PO BID for 5 Days, #10 TAB 0 Refills Prov: ANNA MARIE ORTEGA DO 04/25/19 Prednisone (Prednisone) 20 Mg Tab 30 MG PO BID for 5 Days, #15 TAB 0 Refills Prov: ANNA MARIE ORTEGA DO 04/25/19 ANNA MARIE ORTEGA DO Apr 24, 2019 22:16
[2019-04-24] MEDS ORDERED: PRD20T PO (23:27)
[2019-04-24] MEDS ORDERED: FAMO-119 PO (23:27)
[2019-04-24 23:39] VITALS: BP 130/72
[2019-04-25] MEDS ORDERED: FAMO-119 PO (00:28)
[2019-04-25] MEDS ORDERED: PRD20T PO (00:28)
== END 2019-04-24 23:41 | disposition home or self-care (01) ==
LOC: EDUNIT# 21:52 → ER FS 21:53
DX: L50.9 Urticaria, unspecified (principal); J44.9 Chronic obstructive pulmonary disease, unspecified; F17.210 Nicotine dependence, cigarettes, uncomplicated; Z79.52 Long term (current) use of systemic steroids; Z98.890 Other specified postprocedural states; Z98.51 Tubal ligation status
CPT/HCPCS: 99284

== ENCOUNTER 2019-05-03 10:39 | Emergency (ER) | payer SELFPAY ==
[~2019-05-03] VITALS: Ht 170.2 cm; Wt 86.2 kg
[~2019-05-03 10:39] MED LIST changes: +FAMO-119 PO; +PRD20T PO
[2019-05-03] MEDS ORDERED: NF-METHYLP PO (11:03)
--- NOTE | 2019-05-03 11:03 | ED Integumentary General ---
General Chief Complaint: Skin/Wound Problems Stated Complaint: RASH Nursing Triage Note: Patient c/o generalized rash. States she was seen in the ED a week ago and given a steriod shot and some other medications that she has since completed and the rash hasn't improved and it itches really badly. Source: patient Exam Limitations: no limitations History of Present Illness Date Seen by Provider: May 03, 2019 Time Seen by Provider: 10:50 Initial Comments 64-year-old female who presents with a rash. Patient was seen here 9 days ago and given steroids and Pepcid. She reports that the rash is getting better and then yesterday and today it got worse again. The rash is diffuse and very itchy. She has not followed up with her primary care physician for reevaluation. Patient denies any new irritants, fleas on her animals or any other causes of the rash. Allergies and Home Medications Allergies Coded Allergies: No Known Drug Allergies (Unverified , 01/08/19) Home Medications Albuterol Sulfate 1 Puff Puff, 2 PUFF IH Q4H PRN for SHORTNESS OF BREATH 1 PUFF = 90 MCG Prescribed by: CJ EDWARDS on 01/10/19 1127 Famotidine 20 Mg Tablet, 20 MG PO BID Prescribed by: ANNA MARIE ORTEGA on 04/25/19 0028 Prednisone 20 Mg Tab, 30 MG PO BID Prescribed by: ANNA MARIE ORTEGA on 04/25/19 0028 Patient Home Medication List Home Medication List Reviewed: Yes Review of Systems Review of Systems Constitutional: no symptoms reported Respiratory: no symptoms reported Cardiovascular: no symptoms reported Gastrointestinal: no symptoms reported Skin: see HPI Past Vuthehw-Icvjjv-Ozzoyo Hx Past Med/Social Hx: Reviewed Nursing Past Med/Soc Hx Patient Social History Type Used: Cigarettes Recent Foreign Travel: No Contact w/Someone Who Travel: No Recent Infectious Disease Expo: No Recent Hopitalizations: No Seasonal Allergies Seasonal Allergies: No Past Medical History Surgeries: Yes Section, Tubal Ligation Respiratory: Yes Asthma, COPD Cardiac: No Neurological: No Genitourinary: No Gastrointestinal: No Musculoskeletal: No Endocrine: No HEENT: No Cancer: No Psychosocial: No Integumentary: No Blood Disorders: No Family Medical History Patient reports no known family medical history. Physical Exam Vital Signs Capillary Refill : Less Than 3 Seconds General Appearance: WD/WN, no apparent distress HEENT: PERRL/EOMI Cardiovascular: normal peripheral pulses, regular rate, rhythm Respiratory: chest non-tender, lungs clear Gastrointestinal: non tender, soft Skin: rash (Diffuse papular rash that looks consistent with either contact dermatitis or something like a flea bite.) Skin Problem Location: generalized Progress/Results/Core Measures Results/Orders Blood Pressure Mean: 108 Progress Progress Note : Progress Note We'll discharge patient with a Medrol Dosepak. I recommend that she follow up with her primary care physician for further evaluation if no improvement. Also recommend she ensure that she does not have any fleas and checks on her contact irritants. Departure Impression Primary Impression: Contact dermatitis Qualified Codes: L25.9 - Unspecified contact dermatitis, unspecified cause Disposition: HOME, SELF-CARE Condition: Stable Departure-Patient Inst. Referrals: NATALIA ODOM MD (PCP/Family) Primary Care Physician Patient Instructions: Contact Dermatitis (DC), Dermatitis Scripts Methylprednisolone (Medrol) 4 Mg Tab 4 MG PO UD for 6 Days, #21 TAB as directed per dose pack Prov: JAYLA CUEVAS DO 05/03/19 JAYLA CUEVAS DO May 03, 2019 11:03
[2019-05-03 11:10] VITALS: BP 150/87
== END 2019-05-03 11:10 | disposition home or self-care (01) ==
LOC: EDUNIT# 10:39 → ER FS 10:41
DX: L25.9 Unspecified contact dermatitis, unspecified cause (principal); J44.9 Chronic obstructive pulmonary disease, unspecified; Z98.51 Tubal ligation status
CPT/HCPCS: 99282

== ENCOUNTER 2019-05-24 18:29 | Emergency (ER) | payer SELFPAY ==
[~2019-05-24] VITALS: Ht 170.2 cm; Wt 86.2 kg
[~2019-05-24 18:29] MED LIST changes: +NF-METHYLP PO
--- OUTSIDE RECORDS SUMMARY | 2019-05-24 18:35 | XMS REPORT ---
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 [id number] [address] Jan, IMMUNIZATIONS No Known Immunizations SOCIAL HISTORY Never Assessed REASON FOR VISIT [facility] follow up PLAN OF CARE Activity Details Follow Up prn Reason: VITAL SIGNS Height 5ft 6in in 2019-01-14 Weight 214lb lbs 2019-01-14 BMI 34.54 kg/m2 2019-01-14 Blood pressure systolic 132 mmHg 2019-01-14 Blood pressure diastolic 70 mmHg 2019-01-14 MEDICATIONS Medication Instructions Dosage Frequency Start Date End Date Duration Status Proventil HFA 108 (90 Base) MCG/ACT Inhalation every 6 hrs 2 puffs as needed 6h Active PredniSONE 10 MG Orally Once a day 1 tablet 24h Jan, 6 days Active Albuterol Sulfate (2.5 MG/3ML) 0.083% Inhalation Three times a day 3 ml as needed 8h Jan, Active RESULTS No Results PROCEDURES No Known procedures INSTRUCTIONS MEDICATIONS ADMINISTERED No Known Medications MEDICAL (GENERAL) HISTORY Type Description Date Medical History COPD (chronic obstructive pulmonary disease) Medical History Asthma Surgical History Hospitalization History [facility]- Syncopal Episode 01/2019
--- NOTE | 2019-05-24 19:00 | NUR ---
Report to Cleo CARLOS.
--- NOTE | 2019-05-24 19:21 | ED General ---
General Chief Complaint: General Problems/Pain Stated Complaint: SWOLLEN FEET AND LEG Nursing Triage Note: Pt presents ambulatory to Er with numerous family members. Pt states her feeet and legs swollen for a couple days. Nursing Sepsis Screen: No Definite Risk History of Present Illness Date Seen by Provider: May 24, 2019 Time Seen by Provider: 19:00 Initial Comments The patient presents for 2 days of edema and swelling to the legs. She has elevated them but the swelling has come down. She specifically denies shortness of breath chest pain tachypnea tachycardia fever. She does not take any medications. She has no known kidney disease no heart disease that she is aware of. She was admitted on January 10 of this year. At that time she had cardiac workup. Her creatinine was normal at that time. Her hemoglobin was normal. Her chest x- ray does not indicate a enlarged heart silhouette. This is normal. Her history is completely consistent with dependent edema only. The anemia is 2+ but not pitting at all. There is no tenderness to the calves. She is a smoker so she has chronic lung sounds consistent with smoker. There is no rales present. Her examination does not seem indicate any congestive heart failure or kidney d isease. Her history and also does not indicate either. She can be discharged here safely with instructions for dependent edema including wearing support hose and elevating legs. She states follow-up with primary care. Allergies and Home Medications Allergies Coded Allergies: No Known Drug Allergies (Unverified , 01/08/19) Home Medications Albuterol Sulfate 1 Puff Puff, 2 PUFF IH Q4H PRN for SHORTNESS OF BREATH 1 PUFF = 90 MCG Prescribed by: CJ EDWARDS on 01/10/19 1127 Famotidine 20 Mg Tablet, 20 MG PO BID Prescribed by: ANNA MARIE ORTEGA on 04/25/19 002 Methylprednisolone 4 Mg Tab, 4 MG PO UD as directed per dose pack Prescribed by: JAYLA CUEVAS on 05/03/19 1103 Prednisone 20 Mg Tab, 30 MG PO BID Prescribed by: ANNA MARIE ORTEGA on 04/25/19 002 Patient Home Medication List Home Medication List Reviewed: Yes Review of Systems Review of Systems Constitutional: no symptoms reported EENTM: No blurred vision, No double vision, No throat pain Respiratory: No short of breath, No stridor Cardiovascular: edema; No palpitations, No syncope Gastrointestinal: No diarrhea, No nausea Genitourinary: No hematuria, No pain : No Psychiatric/Neurological: See HPI; Denies Paresthesia, Denies Seizure, Denies Tingling Hematologic/Lymphatic: See HPI; Denies Anemia, Denies Blood Clots, Denies Other Immunological/Allergic: denies see HPI, denies transplant Past Hiaeutp-Akwley-Fppgno Hx Patient Social History Alcohol Use: Denies Use Recreational Drug Use: No Smoking Status: Current Everyday Smoker Type Used: Cigarettes 2nd Hand Smoke Exposure: No Recent Foreign Travel: No Contact w/Someone Who Travel: No Recent Infectious Disease Expo: No Recent Hopitalizations: No Physical Abuse: No Sexual Abuse: No Mistreated: No Fear: No Immunizations Up To Date Tetanus Booster (TDap): Unknown Seasonal Allergies Seasonal Allergies: No Past Medical History Surgeries: Yes Section, Tubal Ligation Respiratory: Yes Asthma, COPD Cardiac: No Neurological: No Genitourinary: No Gastrointestinal: No Musculoskeletal: No Endocrine: No HEENT: No Cancer: No Psychosocial: No Integumentary: No Blood Disorders: No Family Medical History Patient reports no known family medical history. Physical Exam Vital Signs Capillary Refill : Less Than 3 Seconds Height, Weight, BMI Height: 5'7.00" Weight: 190lbs. 1.0oz. 86.554168qk; 32.6 BMI Method:Stated General Appearance: No Apparent Distress, WD/WN HEENT: PERRL/EOMI, TMs Normal, Normal ENT Inspection, Pharynx Normal Neck: Full Range of Motion, Normal Inspection, Non Tender, Supple, Carotid Bruit Respiratory: Chest Non Tender, Lungs Clear, Normal Breath Sounds, No Accessory Muscle Use, No Respiratory Distress Cardiovascular: Regular Rate, Rhythm, No Edema, No Gallop, No JVD, No Murmur, Normal Peripheral Pulses Extremity: Normal Capillary Refill, Normal Inspection, Normal Range of Motion, Non Tender, No Calf Tenderness, No Pedal Edema Skin: Normal Color, Warm/Dry Progress/Results/Core Measures Suspected Sepsis Recent Fever Within 48 Hours: No Infection Criteria Present: None New/Unexplained Altered Menta: No Sepsis Screen: No Definite Risk SIRS Temperature:98.2 Pulse: 86 Respiratory Rate: 20 Blood Pressure 151 /90 Mean: 110 Results/Orders Vital Signs/I&O Capillary Refill : Less Than 3 Seconds Blood Pressure Mean: 110 Departure Impression Primary Impression: Edema of left lower leg due to peripheral venous insufficiency Disposition: HOME, SELF-CARE Condition: Stable Departure-Patient Inst. Referrals: NATALIA ODOM MD (PCP/Family) Primary Care Physician JUSTYNA HORTON MD May 24, 2019 19:20
[2019-05-24 19:45] VITALS: BP 141/77
== END 2019-05-24 19:45 | disposition home or self-care (01) ==
LOC: EDUNIT# 18:29 → ER FS 18:31
DX: I87.2 Venous insufficiency (chronic) (peripheral) (principal); R60.0 Localized edema; J44.9 Chronic obstructive pulmonary disease, unspecified; F17.210 Nicotine dependence, cigarettes, uncomplicated; Z98.51 Tubal ligation status
CPT/HCPCS: 99281

== ENCOUNTER 2020-01-22 15:25 | Emergency (ER) | payer SELFPAY ==
[~2020-01-22] VITALS: Ht 170 cm; Wt 80.0 kg
[2020-01-22 15:32] VITALS: BP 157/89
[2020-01-22] MEDS ORDERED: CYCL10TA9 PO (15:43)
--- NOTE | 2020-01-22 15:43 | ED General ---
General Chief Complaint: General Problems/Pain Stated Complaint: LEG NUMBNESS,HIP PAIN Nursing Triage Note: PT REPORTS LEFT HIP PAIN. STARTED 2 DAYS AGO AND SHE REPORTS USING A HEATING PAD AND ADVIL. Nursing Sepsis Screen: No Definite Risk Source of Information: Patient Exam Limitations: No Limitations History of Present Illness Date Seen by Provider: Jan 22, 2020 Time Seen by Provider: 15:41 Initial Comments Presents with Left low back and left hip pain for 2 days. Hx of the same. No injury, no new activity. No recent fall/ trauma. Allergies and Home Medications Allergies Coded Allergies: No Known Drug Allergies (Unverified , 01/08/19) Home Medications Albuterol Sulfate 1 Puff Puff, 2 PUFF IH Q4H PRN for SHORTNESS OF BREATH 1 PUFF = 90 MCG Prescribed by: CJ EDWARDS on 01/10/19 1127 Cyclobenzaprine HCl 10 Mg Tablet, 10 MG PO Q8H PRN for SPASMS Prescribed by: RAMILA KEYSVENSTCHANEL on 01/22/20 1543 Famotidine 20 Mg Tablet, 20 MG PO BID Prescribed by: ANNA MARIE ORTEGA on 04/25/19 0028 Methylprednisolone 4 Mg Tab, 4 MG PO UD as directed per dose pack Prescribed by: JAYLA CUEVAS on 05/03/19 1103 Prednisone 20 Mg Tab, 30 MG PO BID Prescribed by: ANNA MARIE ORTEGA on 04/25/19 0028 Patient Home Medication List Home Medication List Reviewed: Yes Review of Systems Review of Systems Constitutional: no symptoms reported; No fever, No malaise, No weakness, No weight loss Respiratory: No cough, No short of breath Cardiovascular: No chest pain, No palpitations Gastrointestinal: No abdominal pain, No vomiting Genitourinary: No dysuria, No hematuria Musculoskeletal: back pain, joint pain Skin: see HPI; No change in color, No rash Past Qhpgeuy-Vjadzk-Mkxkmo Hx Past Med/Social Hx: Reviewed Nursing Past Med/Soc Hx Patient Social History Alcohol Use: Denies Use Recreational Drug Use: No Smoking Status: Never a Smoker Type Used: Cigarettes 2nd Hand Smoke Exposure: No Recent Foreign Travel: No Contact w/Someone Who Travel: No Recent Infectious Disease Expo: No Recent Hopitalizations: No Physical Abuse: No Sexual Abuse: No Mistreated: No Fear: No Immunizations Up To Date Tetanus Booster (TDap): Unknown Seasonal Allergies Seasonal Allergies: No Past Medical History Surgeries: Yes Section, Tubal Ligation Respiratory: Yes Asthma, COPD Cardiac: No Neurological: No Genitourinary: No Gastrointestinal: No Musculoskeletal: No Endocrine: No HEENT: No Cancer: No Psychosocial: No Integumentary: No Blood Disorders: No Family Medical History Patient reports no known family medical history. Physical Exam Vital Signs Vital Signs - First Documented 01/22/20 15:32 Temp 36.1 Pulse 96 Resp 20 B/P (MAP) 157/89 (111) Pulse Ox 98 O2 Delivery Room Air Capillary Refill : Less Than 3 Seconds Height, Weight, BMI Height: 5'7.00" Weight: 190lbs. 1.0oz. 86.487206qh; 27.00 BMI Method:Stated General Appearance: No Apparent Distress, WD/WN Respiratory: Chest Non Tender, Lungs Clear Cardiovascular: Regular Rate, Rhythm, No Murmur Gastrointestinal: Non Tender, Soft; No Distended, No Guarding Back: No CVA Tenderness, No Vertebral Tenderness, Decreased Range of Motion, Muscle Spasm (left lower lumbar paraspinal ms.. ) Extremity: Normal Inspection, Non Tender, No Calf Tenderness Neurologic/Psychiatric: Alert, Oriented x3, No Motor/Sensory Deficits Skin: Normal Color, Warm/Dry Progress/Results/Core Measures Suspected Sepsis Recent Fever Within 48 Hours: No Infection Criteria Present: None New/Unexplained Altered Menta: No Sepsis Screen: No Definite Risk SIRS Temperature: Pulse: 96 Respiratory Rate: 20 Blood Pressure 157 /89 Mean: 111 Results/Orders My Orders Orders - LUDMILAVENSTRAMILA BUCHANAN DO Ketorolac Injection (Toradol Injection) (01/22/20 15:45) Vital Signs/I&O 01/22/20 15:32 Temp 36.1 Pulse 96 Resp 20 B/P (MAP) 157/89 (111) Pulse Ox 98 O2 Delivery Room Air Capillary Refill : Less Than 3 Seconds Blood Pressure Mean: 111 Departure Impression Primary Impression: Acute lumbar myofascial strain Qualified Codes: S39.012A - Strain of muscle, fascia and tendon of lower back, initial encounter Additional Impression: Lumbar radiculopathy Disposition: HOME, SELF-CARE Condition: Stable Departure-Patient Inst. Decision time for Depature: 15:43 Referrals: NATALIA ODOM MD (PCP/Family) Primary Care Physician Patient Instructions: Low Back Pain (DC), Radiculopathy (DC) Add. Discharge Instructions: Call your Doctor tomorrow morning to arrange for follow up care next week. All discharge instructions reviewed with patient and/or family. Voiced understanding. Scripts Cyclobenzaprine HCl (Cyclobenzaprine HCl) 10 Mg Tablet 10 MG PO Q8H PRN for SPASMS, #15 TAB 0 Refills Prov: RAMILA DE JESUS DO 01/22/20 RAMILA DE JESUS DO Jan 22, 2020 15:43
[2020-01-22] MEDS ORDERED: KETOROLAC 60 MG/2 ML VIAL IM ONE (15:45)
--- OUTSIDE RECORDS SUMMARY | 2020-01-22 18:31 | XMS REPORT | Continuity of Care Document ---
Author Organization Unknown Address Unknown Phone Unavailable Allergies Active Description Code Type Severity Reaction Onset Reported/Identified Relationship to Patient Clinical Status Yes No Known Drug Allergies [id number] Drug Allergy Unknown N/A 01/08/2019 Medications There is no data. Problems Date Dx Coded Attending Type Code Diagnosis Diagnosed By 01/10/2019 CJ EDWARDS MD, Ot F17.210 NICOTINE DEPENDENCE, CIGARETTES, UNCOMPL 01/10/2019 CJ EDWARDS MD Ot I45.81 LONG QT SYNDROME 01/10/2019 CJ EDWARDS MD, Ot J45.909 UNSPECIFIED ASTHMA, UNCOMPLICATED 01/10/2019 CJ EDWARDS MD Ot R07.89 OTHER CHEST PAIN 01/10/2019 CJ EDWARDS MD Ot R55 SYNCOPE AND COLLAPSE 01/10/2019 CJ EDWARDS MD, Ot Z79.899 OTHER INTERMEDIATE (CURRENT) DRUG THERAPY 01/10/2019 CJ EDWARDS MD Ot Z91.120 PT INTENTL UNDRDOSE OF MEDS REGIMEN DUE 04/24/2019 ANNA MARIE ORTEGA DO, Ot F17.210 NICOTINE DEPENDENCE, CIGARETTES, UNCOMPL 04/24/2019 ANNA MARIE ORTEGA DO, Ot J44.9 CHRONIC OBSTRUCTIVE PULMONARY DISEASE, U 04/24/2019 ANNA MARIE ORTEGA DO, Ot L50.9 URTICARIA, UNSPECIFIED 04/24/2019 ANNA MARIE ORTEGA DO, Ot R2 1 RASH AND OTHER NONSPECIFIC SKIN ERUPTION 04/24/2019 ANNA MARIE ORTEGA DO, Ot Z79.52 CNA PER DIEM (CURRENT) USE OF SYSTEMIC STER 04/24/2019 ANNA MARIE ORTEGA DO, Ot Z98.51 TUBAL LIGATION STATUS 04/24/2019 ANNA MARIE ORTEGA DO, Ot Z98.890 OTHER SPECIFIED POSTPROCEDURAL STATES 04/25/2019 ANNA MARIE ORTEGA DO, Ot F17.210 NICOTINE DEPENDENCE, CIGARETTES, UNCOMPL 04/25/2019 ANNA MARIE ORTEGA DO, Ot J44.9 CHRONIC OBSTRUCTIVE PULMONARY DISEASE, U 04/25/2019 JORDAN JUDGE ANNA MARIE Aviva Ot L50.9 URTICARIA, UNSPECIFIED 04/25/2019 JORDAN JUDGEANNA MARIE Ot R2 1 RASH AND OTHER NONSPECIFIC SKIN ERUPTION 04/25/2019 JORDAN JUDGEANNA MARIE Ot Z79.52 CNA PER DIEM (CURRENT) USE OF SYSTEMIC STER 04/25/2019 JORDAN JUDGEANNA MARIE Ot Z98.51 TUBAL LIGATION STATUS 04/25/2019 JORDAN JUDGEANNA MARIE Ot Z98.890 OTHER SPECIFIED POSTPROCEDURAL STATES 05/03/2019 CUEVAS DO, JAYLA L Ot J44.9 CHRONIC OBSTRUCTIVE PULMONARY DISEASE, U 05/03/2019 CUEVAS DO, JAYLA L Ot L25.9 UNSPECIFIED CONTACT DERMATITIS, UNSPECIF 05/03/2019 CUEVAS DO, JAYLA L Ot R21 RASH AND OTHER NONSPECIFIC SKIN ERUPTION 05/03/2019 CUEVAS DO, JAYLA L Ot Z98.5 1 TUBAL LIGATION STATUS 05/06/2019 CUEVAS DO, JAYLA L Ot J44.9 CHRONIC OBSTRUCTIVE PULMONARY DISEASE, U 05/06/2019 CUEVAS DO, JAYLA L Ot L25.9 UNSPECIFIED CONTACT DERMATITIS, UNSPECIF 05/06/2019 CUEVAS DO, JAYLA L Ot R21 RASH AND OTHER NONSPECIFIC SKIN ERUPTION 05/06/2019 CUEVAS DO, JAYLA L Ot Z98.5 1 TUBAL LIGATION STATUS 06/19/2019 SOL HUANG, JUSTYNA marquez F17.210 NICOTINE DEPENDENCE, CIGARETTES, UNCOMPL 06/19/2019 JUSTYNA HORTON MD I87.2 VENOUS INSUFFICIENCY (CHRONIC) (PERIPHER 06/19/2019 JUSTYNA HORTON MD J44.9 CHRONIC OBSTRUCTIVE PULMONARY DISEASE, U 06/19/2019 JUSTYNA HORTON MD M79.89 OTHER SPECIFIED SOFT TISSUE DISORDERS 06/19/2019 JUSTYNA HORTON MD R60.0 LOCALIZED EDEMA 06/19/2019 JUSTYNA HORTON MD Z98.51 TUBAL LIGATION STATUS Procedures There is no data. Results Test Result Range TROPONIN T - 01/08/19 00:40 TROPONIN T < 6 <=10 Automated blood complete blood count (he mogram) panel - 01/08/19 22:40 Blood leukocytes automated count (number/volume) 8.2 10*3/uL 4.3-11.0 Blood erythrocytes automated count (number/volume) 4.87 10*6/uL 4.35-5.85 Venous blood hemoglobin measurement (mass/volume) 13.9 g/dL 11.5-16.0 Blood hematocrit (volume fraction) 43 % 35-52 Automated erythrocyte mean corpuscular volume 89 [ foz_us] 80-99 Automated erythrocyte mean corpuscular h emoglobin (mass per erythrocyte) 29 pg 25-34 Automated erythrocyte mean corpuscular h emoglobin concentration measurement (mass/volume) 32 g/dL 32-36 Automated erythrocyte distribution width ratio 12. 9 % 10.0- 14.5 Automated blood platelet count (count/volume) 297 10*3/uL 130-400 Automated blood platelet mean volume measurement 9.1 [foz_us] 7.4-10.4 Comprehensive metabolic panel - 01/08/19 22:40 Serum or plasma sodium measurement (moles/volume) 138 mmol/L 135-145 Serum or plasma potassium measurement (moles/volume) 4.4 mmol/L 3.6-5.0 Serum or plasma chloride measurement (moles/volume) 100 mmol/L 98-107 Carbon dioxide 26 mmol/L 21-32 Serum or plasma anion gap determination (moles/volume) 12 mmol/L 5-14 Serum or plasma urea nitrogen measurement (mass/volume ) 13 mg/dL 7-18 Serum or plasma creatinine measurement (mass/volume) 0.87 mg/dL 0.60-1.30 Serum or plasma urea nitrogen/creatinine mass ratio 15 NRG Serum or plasma creatinine measurement w ith calculation of estimated glomerular filtration rate > NRG Serum or plasma glucose measurement (mass/volume) 113 mg/dL 70-105 Serum or plasma calcium measurement (mass/volume) 9.4 mg/dL 8.5-10.1 Serum or plasma total bilirubin measurement (mass/volu me) 0.2 mg/dL 0.1-1.0 Serum or plasma alkaline phosphatase thea surement (enzymatic activity/volume) 72 U/L 40-136 Serum or plasma aspartate aminotransfera se measurement (enzymatic activity/volume) 20 U/L 5-34 Serum or plasma alanine aminotransferase measurement (enzymatic activity/volume) 15 U/L 0-55 Serum or plasma protein measurement (mass/volume) 7.3 g/dL 6.4-8.2 Serum or plasma albumin measurement (mass/volume) 4.4 g/dL 3.2-4.5 CALCIUM CORRECTED 9.1 mg/dL 8.5-10.1 TROPONIN T - 01/08/19 22:40 TROPONIN T < 6 <=10 PROBNP FS - 01/08/19 22:40 PROBNP FS 115.2 pg/mL <75.0 Fibrin D-dimer FEU measurement in platel et poor plasma (mass/volume) - 01/08/19 22:40 Fibrin D-dimer FEU measurement in platelet poor plasma (mass/volume) 0.47 ug/mL 0.00-0.49 Serum or plasma troponin i.cardiac measu rement (mass/volume) - 01/09/19 06:51 Serum or plasma troponin i.cardiac measurement (mass/v olume) < ng/mL <0.028 Serum or plasma troponin i.cardiac measu rement (mass/volume) - 01/09/19 12:05 Serum or plasma troponin i.cardiac measurement (mass/v olume) < ng/mL <0.028 Complete blood count (CBC) with automate d white blood cell (WBC) differential - 01/10/19 04:35 Blood leukocytes automated count (number/volume) 8.8 10*3/uL 4.3-11.0 Blood erythrocytes automated count (number/volume) 4.14 10*6/uL 4.35-5.85 Venous blood hemoglobin measurement (mass/volume) 11.7 g/dL 11.5-16.0 Blood hematocrit (volume fraction) 37 % 35-52 Automated erythrocyte mean corpuscular volume 90 [ foz_us] 80-99 Automated erythrocyte mean corpuscular h emoglobin (mass per erythrocyte) 28 pg 25-34 Automated erythrocyte mean corpuscular h emoglobin concentration measurement (mass/volume) 32 g/dL 32-36 Automated erythrocyte distribution width ratio 13. 3 % 10.0- 14.5 Automated blood platelet count (count/volume) 244 10*3/uL 130-400 Automated blood platelet mean volume measurement 9.7 [foz_us] 7.4-10.4 Automated blood neutrophils/100 leukocytes 69 % 42-75 Automated blood lymphocytes/100 leukocytes 21 % 12-44 Blood monocytes/100 leukocytes 8 % 0-12 Automated blood eosinophils/100 leukocytes 2 % 0-10 Automated blood basophils/100 leukocytes 0 % 0-10 Blood neutrophils automated count (number/volume) 6.1 10*3 1.8-7.8 Blood lymphocytes automated count (number/volume) 1.8 10*3 1.0-4.0 Blood monocytes automated count (number/volume) 0. 7 10*3 0.0-1.0 Automated eosinophil count 0.1 10*3/uL 0 .0-0.3 Automated blood basophil count (count/volume) 0.0 10*3/uL 0.0-0.1 Comprehensive metabolic panel - 01/10/19 04:35 Serum or plasma sodium measurement (moles/volume) 141 mmol/L 135-145 Serum or plasma potassium measurement (moles/volume) 4.1 mmol/L 3.6-5.0 Serum or plasma chloride measurement (moles/volume) 109 mmol/L 98-107 Carbon dioxide 23 mmol/L 21-32 Serum or plasma anion gap determination (moles/volume) 9 mmol/L 5-14 Serum or plasma urea nitrogen measurement (mass/volume ) 23 mg/dL 7-18 Serum or plasma creatinine measurement (mass/volume) 0.83 mg/dL 0.60-1.30 Serum or plasma urea nitrogen/creatinine mass ratio 28 NRG Serum or plasma creatinine measurement w ith calculation of estimated glomerular filtration rate > NRG Serum or plasma glucose measurement (mass/volume) 92 mg/dL 70-105 Serum or plasma calcium measurement (mass/volume) 9.1 mg/dL 8.5-10.1 Serum or plasma total bilirubin measurement (mass/volu me) 0.2 mg/dL 0.1-1.0 Serum or plasma alkaline phosphatase thea surement (enzymatic activity/volume) 55 U/L 40-136 Serum or plasma aspartate aminotransfera se measurement (enzymatic activity/volume) 17 U/L 5-34 Serum or plasma alanine aminotransferase measurement (enzymatic activity/volume) 11 U/L 0-55 Serum or plasma protein measurement (mass/volume) 5.7 g/dL 6.4-8.2 Serum or plasma albumin measurement (mass/volume) 3.5 g/dL 3.2-4.5 CALCIUM CORRECTED 9.5 mg/dL 8.5-10.1 Encounters ACCT No. Visit Date/Time Discharge Status Pt. Type Provider Facility Loc./Unit Complaint [id number] 05/24/2019 18:31:00 19:45:00 DIS Outpatient SOL HUANG, RISHABH Loving [facility] ER FS SWOLLEN FEE T AND LEG [id number] 05/03/2019 10:41:00 11:10:00 DIS Emergency JAYLA CUEVAS DO [facility] ER FS RASH [id number] 04/24/2019 21:53:00 019 23:41:00 DIS Emergency ANNA MARIE ORTEGA DO [facility] ER FS HIVES/RASH ON EYES [id number] 01/08/2019 21:06:00 14:14:00 DIS Outpatient GRACE HUANG, CJ Campbell [facility] 4TH SYNCOPE,POSSIBLE PROLON GED QT
== END 2020-01-22 15:56 | disposition home or self-care (01) ==
LOC: EDUNIT# 15:25 → ER FS 15:27
DX: S39.012A Strain of muscle, fascia and tendon of lower back, initial encounter (principal); M54.16 Radiculopathy, lumbar region; J44.9 Chronic obstructive pulmonary disease, unspecified; X58.XXXA Exposure to other specified factors, initial encounter
CPT/HCPCS: 96372

== ENCOUNTER 2020-09-10 23:28 | Emergency (ER) | payer SELFPAY ==
[~2020-09-10] VITALS: Ht 170.1 cm; Wt 115.2 kg
[~2020-09-10 23:28] MED LIST changes: +CYCL10TA9 PO
[2020-09-10] MEDS ORDERED: morphine INJ 10 MG/ML 1ML (SYR OR VIAL) IVP STA (23:42)
[2020-09-10] MEDS ORDERED: NS IV 1000 ML 1,000 ML IV STA (23:42)
[2020-09-10] MEDS ORDERED: ONDANSETRON 4 MG/2 ML (SDV) Z0FRAN IVP ONE (23:45)
--- NOTE | 2020-09-10 23:54 | ED Abdominal Pain ---
General Chief Complaint: Abdominal/GI Problems Stated Complaint: STOMACHE PAIN Source of Information: Patient, RN/MD, RN Notes Reviewed Exam Limitations: No Limitations History of Present Illness Date Seen by Provider: Sep 10, 2020 Time Seen by Provider: 23:40 Initial Comments This patient is a 65-year-old female presents to the emergency department with complaint of right department abdominal pain. Patient states this pain started one day ago and has progressively gotten worse describes as sharp in nature. Patient denies nausea vomiting diarrhea denies fever. Patient denies history of diverticulitis. We'll do medical evaluation treatment is needed Timing/Duration: 1 Day Severity/Quality: Moderate Location: RLQ Radiation: No Radiation Activities at Onset: None Associated Symptoms: No Denies Symptoms, No Back Pain, No Chest Pain, No D iaphoresis, No Fever/Chills, No Fatigue, No Headache, No Heartburn, No Nausea/Vomiting, No Rash, No Shortness of Air, No Swelling/Mass in Abdomen, No Syncope, No Weakness, No Other Allergies and Home Medications Allergies Coded Allergies: No Known Drug Allergies (Unverified , 01/08/19) Home Medications Albuterol Sulfate 1 Puff Puff, 2 PUFF IH Q4H PRN for SHORTNESS OF BREATH 1 PUFF = 90 MCG Prescribed by: CJ EDWARDS on 01/10/19 1127 Cyclobenzaprine HCl 10 Mg Tablet, 10 MG PO Q8H PRN for SPASMS Prescribed by: RAMILA DE JESUS on 01/22/20 1543 Famotidine 20 Mg Tablet, 20 MG PO BID Prescribed by: ANNA MARIE ORTEGA on 04/25/19 0028 Methylprednisolone 4 Mg Tab, 4 MG PO UD as directed per dose pack Prescribed by: JAYLA CUEVAS on 05/03/19 1103 Prednisone 20 Mg Tab, 30 MG PO BID Prescribed by: ANNA MARIE ORTEGA on 04/25/19 0028 Patient Home Medication List Home Medication List Reviewed: Yes Review of Systems Review of Systems Constitutional: No no symptoms reported; see HPI; No chills, No diaphoresis, No dizziness, No fever, No malaise, No weakness, No weight gain, No weight loss, No other EENTM: No No Symptoms Reported, No See HPI, No Blurred Vision, No Double Vision, No Eye Pain, No Eye Tearing, No Ear Drainage, No Ear Pain, No Mouth Pain, No Mouth Swelling, No Nose Congestion, No Nose Pain, No Throat Pain, No Throat Swelling, No Other Respiratory: Denies No Symptoms Reported, Denies See HPI, Denies Cough, Denies Orthopnea, Denies Shortness of Air, Denies SOA With Exertion, Denies SOA at Rest, Denies Stridor, Denies Wheezing, Denies Other Cardiovascular: Denies No Symptoms Reported, Denies See HPI, Denies Chest Pain, Denies Edema, Denies Irregular Heart Rate, Denies Lightheadedness, Denies Palpitations, Denies Syncope, Denies Other Gastrointestinal: Denies No Symptoms Reported, Denies See HPI, Denies Abdomen Distended; Abdominal Pain; Denies Blood Streaked Stools, Denies Constipated, Denies Diarrhea, Denies Difficulty Swallowing, Denies Nausea, Denies Poor Appetite, Denies Poor Fluid Intake, Denies Rectal Bleeding, Denies Vomiting, Denies Other Genitourinary: Denies No Symptoms Reported, Denies See HPI, Denies Burning, Denies Discharge, Denies Drainage, Denies Frequency, Denies Flank Pain, Denies Hematuria, Denies Incontinence, Denies Pain, Denies Urgency, Denies Other Musculoskeletal: No no symptoms reported, No see HPI, No back pain, No gout, No joint pain, No joint swelling, No muscle pain, No muscle stiffness, No muscle cramps, No muscle twitching, No muscle weakness, No neck pain, No other Skin: No no symptoms reported, No see HPI, No change in color, No change in hair/nails, No dryness, No hx of skin cancer, No lesions, No lumps, No pruritus, No rash, No other Endocrine: Denies No Symptoms Reported, Denies See HPI, Denies Excessive Sweating, Denies Flushing, Denies Intolerance to Cold, Denies Intolerance to Heat, Denies Increased Hunger, Denies Increased Thrist, Denies Increased Urine, Denies Unexplained Weight Gain, Denies Unexplaned Weight Loss, Denies Other All Other Systems Reviewed Negative Unless Noted: Yes Past Iiljyyo-Yjxvxh-Snicqj Hx Patient Social History Type Used: Cigarettes 2nd Hand Smoke Exposure: No Recent Foreign Travel: No Contact w/Someone Who Travel: No Recent Hopitalizations: No Immunizations Up To Date Tetanus Booster (TDap): Unknown Seasonal Allergies Seasonal Allergies: No Past Medical History Surgeries: Yes Section, Tubal Ligation Respiratory: Yes Asthma, COPD Cardiac: No Neurological: No Genitourinary: No Gastrointestinal: No Musculoskeletal: No Endocrine: No HEENT: No Cancer: No Psychosocial: No Integumentary: No Blood Disorders: No Family Medical History Patient reports no known family medical history. Physical Exam Vital Signs Vital Signs - First Documented 09/10/20 23:33 Temp 36.7 Pulse 100 Resp 20 B/P (MAP) 129/96 (107) Pulse Ox 97 O2 Delivery Room Air Capillary Refill : Height/Weight/BMI Height: 5'7.00" Weight: 190lbs. 1.0oz. [id number]; 27.00 BMI Method:Stated General Appearance: WD/WN, no apparent distress Respiratory: chest non-tender, lungs clear, normal breath sounds, no respiratory distress, no accessory muscle use Cardiovascular: normal peripheral pulses, regular rate, rhythm, no edema, no gallop, no JVD, no murmur Gastrointestinal: guarding, tenderness, other (right lower quadrant) Skin: normal color, warm/dry Progress/Results/Core Measures Results/Orders Lab Results Laboratory Tests Test 09/10/20 23:36 09/10/20 23:47 Range/Units Urine Color YELLOW Urine Clarity CLEAR Urine pH 6.5 5-9 Urine Specific [place] 1.020 1.016-1.022 Urine Protein NEGATIVE NEGATIVE Urine Glucose (UA) NEGATIVE NEGATIVE Urine Ketones NEGATIVE NEGATIVE Urine Nitrite NEGATIVE NEGATIVE Urine Bilirubin NEGATIVE NEGATIVE Urine Urobilinogen 4.0 < = 1.0 MG/DL Urine Leukocyte Esterase TRACE H NEGATIVE Urine RBC (Auto) 1+ H NEGATIVE Urine RBC 2-5 H /HPF Urine WBC 10-25 H /HPF Urine Squamous Epithelial Cells >50 H /HPF Urine Crystals NONE /LPF Urine Bacteria FEW H /HPF Urine Casts NONE /LPF Urine Mucus NEGATIVE /LPF Urine Culture Indicated YES White Blood Count 8.3 4.3-11.0 10^3/uL Red Blood Count 4.93 4.35-5.85 10^6/uL Hemoglobin 13.9 11.5-16.0 G/DL Hematocrit 43 35-52 % Mean Corpuscular Volume 88 80-99 FL Mean Corpuscular Hemoglobin 28 25-34 PG Mean Corpuscular Hemoglobin Concent 32 32-36 G/DL Red Cell Distribution Width 13.1 10.0-14.5 % Platelet Count 339 130-400 10^3/uL Mean Platelet Volume 9.2 7.4-10.4 FL Immature Granulocyte % (Auto) 0 % Neutrophils (%) (Auto) 59 42-75 % Lymphocytes (%) (Auto) 25 12-44 % Monocytes (%) (Auto) 12 0-12 % Eosinophils (%) (Auto) 3 0-10 % Basophils (%) (Auto) 1 0-10 % Neutrophils # (Auto) 4.9 1.8-7.8 X 10^3 Lymphocytes # (Auto) 2.1 1.0-4.0 X 10^3 Monocytes # (Auto) 1.0 0.0-1.0 X 10^3 Eosinophils # (Auto) 0.2 0.0-0.3 10^3/uL Basophils # (Auto) 0.1 0.0-0.1 10^3/uL Immature Granulocyte # (Auto) 0.0 0.0-0.1 10^3/uL Sodium Level 137 135-145 MMOL/L Potassium Level 4.3 3.6-5.0 MMOL/L Chloride Level 104 98-107 MMOL/L Carbon Dioxide Level 23 21-32 MMOL/L Anion Gap 10 5-14 MMOL/L Blood Urea Nitrogen 20 H 7-18 MG/DL Creatinine 0.96 0.60-1.30 MG/DL Estimat Glomerular Filtration Rate 59 BUN/Creatinine Ratio 21 Glucose Level 103 70-105 MG/DL Calcium Level 9.4 8.5-10.1 MG/DL Corrected Calcium 9.4 8.5-10.1 MG/DL Total Bilirubin < 0.2 0.1-1.0 MG/DL Aspartate Amino Transf (AST/SGOT) 15 5-34 U/L Alanine Aminotransferase (ALT/SGPT) 14 0-55 U/L Alkaline Phosphatase 79 40-136 U/L Total Protein 6.9 6.4-8.2 GM/DL Albumin 4.0 3.2-4.5 GM/DL My Orders Orders - KATIANA SAHNI MD Ct Abd/Pelv W (Appendicitis) (09/10/20 23:42) Ed Iv/Invasive Line Start (09/10/20 23:42) Comprehensive Metabolic Panel (09/10/20 23:42) Cbc With Automated Diff (09/10/20 23:42) Urinalysis (09/10/20 23:42) Ns Iv 1000 Ml (Sodium Chloride 0.9%) (09/10/20 23:42) Morphine Injection (Morphine Injection (09/10/20 23:42) Ondansetron Injection (Zofran Injectio (09/10/20 23:45) Iohexol Injection (Omnipaque 350 Mg/Ml 1 (09/11/20 00:00) Received Contrast (Hold Metformin- Contr (09/11/20 00:00) Sodium Chloride Flush (Catheter Flush Sy (09/11/20 00:00) Ns (Ivpb) (Sodium Chloride 0.9% Ivpb Bag (09/11/20 00:00) Urine Culture (09/10/20 23:36) Medications Given in ED Current Medications Medications Dose Ordered Sig/Lisa Route Start Time Stop Time Status Last Admin Dose Admin Iohexol 100 ml ONCE ONCE IV 09/11/20 00:00 09/11/20 00:01 DC 09/11/20 00:57 100 ML Ondansetron HCl 4 mg ONCE ONCE IVP 09/10/20 23:45 09/10/20 23:46 DC 09/10/20 23:54 4 MG Sodium Chloride 10 ml NEEDED PRN IV 09/11/20 00:00 09/11/20 00:57 10 ML Sodium Chloride 100 ml ONCE ONCE IV 09/11/20 00:00 09/11/20 00:01 DC 09/11/20 00:57 100 ML Vital Signs/I&O 09/10/20 23:33 Temp 36.7 Pulse 100 Resp 20 B/P (MAP) 129/96 (107) Pulse Ox 97 O2 Delivery Room Air Progress Progress Note : Time: 01:29 Progress Note Negative evaluation in the emergency department. Negative CT pending. Patient is complaining of pain. Patient is to encourage by mouth fluids and advance diet slowly. Take medications as instructed. May use heating pad as needed. Follow-up with PCP in 3 days. Departure Impression Primary Impression: Abdominal pain Disposition: HOME, SELF-CARE Condition: Stable Departure-Patient Inst. Decision time for Depature: 01:30 Referrals: NATALIA ODOM MD (PCP/Family) Primary Care Physician Patient Instructions: Severe Abdominal Pain, Adult (DC) Add. Discharge Instructions: Patient is to encourage by mouth fluids and advance diet slowly. Take medications as instructed. May use heating pad as needed. Follow-up with PCP in 3 days. All discharge instructions reviewed with patient and/or family. Voiced understanding. Scripts Diclofenac Sodium (Diclofenac Sodium) 75 Mg Tablet. 75 MG PO BID for 10 Days, #20 TAB 0 Refills Prov: KATIANA SAHNI MD 09/11/20 KATIANA SAHNI MD Sep 10, 2020 23:54
[2020-09-10 23:55] LABS: BASOPHILS % (AUTO) 1 % (0-10); EOSINOPHILS % (AUTO) 3 % (0-10); HEMATOCRIT 43 % (35-52); HEMOGLOBIN 13.9 G/DL (11.5-16.0); LYMPHOCYTES % (AUTO) 25 % (12-44); MEAN CORPUSCULAR HEMOGLOBIN 28 PG (25-34); MEAN CORPUSCULAR HGB CONC 32 G/DL (32-36); MEAN CORPUSCULAR VOLUME 88 FL (80-99); MEAN PLATELET VOLUME 9.2 FL (7.4-10.4); MONOCYTES % (AUTO) 12 % (0-12); NEUTROPHILS % (AUTO) 59 % (42-75); PLATELET COUNT 339 10^3/uL (130-400); WHITE BLOOD COUNT 8.3 10^3/uL (4.3-11.0)
[2020-09-10 23:56] LABS: BASOPHILS # (AUTO) 0.1 10^3/uL (0.0-0.1); EOSINOPHILS # (AUTO) 0.2 10^3/uL (0.0-0.3); LYMPHOCYTES # (AUTO) 2.1 X 10^3 (1.0-4.0); NEUTROPHILS # (AUTO) 4.9 X 10^3 (1.8-7.8)
[2020-09-11] MEDS ORDERED: NS 100 ML (IVPB) BAG IV ONE
[2020-09-11] MEDS ORDERED: IOHEXOL 350 MG/ML 100 ML (OMNIPAQUE 350) VIAL IV ONE
[2020-09-11] MEDS ORDERED: CATHETER FLUSH 10 ML SYR IV PRN
[2020-09-11] MEDS ORDERED: HOLD METFORMIN - RECEIVED CONTRAST 20 ML VIAL IV SCH
[2020-09-11 00:01] LABS: BILIRUBIN,URINE NEGATIVE (NEGATIVE); CLARITY,URINE CLEAR; COLOR,URINE YELLOW; GLUCOSE, URINE (UA) NEGATIVE (NEGATIVE); KETONES,URINE NEGATIVE (NEGATIVE); NITRITE,URINE NEGATIVE (NEGATIVE); PH,URINE 6.5 (5-9); PROTEIN,URINE NEGATIVE (NEGATIVE)
[2020-09-11 00:02] LABS: BACTERIA,URINE FEW /HPF; LEUKOCYTE ESTERASE ,URINE TRACE (NEGATIVE); SQUAMOUS EPITHELIAL CELL,UR >50 /HPF
[2020-09-11 00:21] LABS: CARBON DIOXIDE 23 MMOL/L (21-32); CHLORIDE 104 MMOL/L (98-107); POTASSIUM 4.3 MMOL/L (3.6-5.0); SODIUM 137 MMOL/L (135-145)
[2020-09-11 00:22] LABS: ALANINE AMINOTRANSFERASE 14 U/L (0-55); ALKALINE PHOSPHATASE 79 U/L (40-136); BILIRUBIN,TOTAL < 0.2 MG/DL (0.1-1.0); BUN/CREATININE RATIO 21; CALCIUM 9.4 MG/DL (8.5-10.1); CREATININE SERUM 0.96 MG/DL (0.60-1.30); GFR ESTIMATED 59; GLUCOSE 103 MG/DL (70-105); TOTAL PROTEIN 6.9 GM/DL (6.4-8.2)
[2020-09-11] MEDS ORDERED: DICL75TA2 PO (01:30)
[2020-09-11 01:34] VITALS: BP 169/79
--- NOTE | 2020-09-11 07:03 | Diagnostic Imaging Report ---
PROCEDURE: CT abdomen and pelvis with contrast, rule out appendicitis. TECHNIQUE: Multiple contiguous axial images were obtained through the abdomen and pelvis after the administration of intravenous contrast. All CT scans use one or more of the following dose optimizing techniques: automated exposure control, MA and/or KvP adjustment based on patient size and exam type or iterative reconstruction. INDICATION: Right lower quadrant abdominal pain. CORRELATION STUDY: None. FINDINGS: LOWER THORAX: Clear. LIVER: Enlarged at 21 cm in length. Low attenuating area posterior right hepatic lobe measuring 13 mm, could reflect a small cyst or hemangioma, is nonspecific. GALLBLADDER: Somewhat contracted but otherwise unremarkable. SPLEEN: Unremarkable. PANCREAS: Unremarkable. ADRENAL GLANDS: Unremarkable. KIDNEYS: Normal configuration. No calcification or obstruction. ABDOMINAL AORTA: Mild plaque-like formation. GASTROINTESTINAL TRACT: No obstruction or inflammation. Normal appendix. URINARY BLADDER: Unremarkable. REPRODUCTIVE: Uterus and adnexa appearing unremarkable for patient's age. OSSEOUS STRUCTURES: Right femur is extended. OTHER: None. IMPRESSION: 1. Negative for acute abnormality of the abdomen or pelvis. Initial report was provided by [employer]. Dictated by: Dictated on workstation # [id number]
== END 2020-09-11 01:34 | disposition home or self-care (01) ==
LOC: EDUNIT# 23:28 → ER FS 23:30
DX: R10.31 Right lower quadrant pain (principal); J44.9 Chronic obstructive pulmonary disease, unspecified; Z79.52 Long term (current) use of systemic steroids
CPT/HCPCS: 36415; 74177; 80053; 81000; 85025; 87088

== ENCOUNTER 2022-10-07 23:21 | Emergency (ER) | payer MEDICARE, MEDICAID ==
[~2022-10-07] VITALS: Ht 170.1 cm; Wt 114.2 kg
[~2022-10-07 23:21] MED LIST changes: +ALBU8.5H6 IH; +CYCL10TA25 PO; -CYCL10TA9 PO; +DICL75TA2 PO; -RT-ALBUINH IH
[2022-10-07] MEDS ORDERED: NS IV 1000 ML 1,000 ML IV SCH (23:45)
[2022-10-07 23:55] LABS: BASOPHILS # (AUTO) 0.1 10^3/uL (0.0-0.1); BASOPHILS % (AUTO) 1 % (0-10); EOSINOPHILS # (AUTO) 0.4 10^3/uL (0.0-0.3); EOSINOPHILS % (AUTO) 3 % (0-10); HEMATOCRIT 42 % (35-52); HEMOGLOBIN 13.4 g/dL (11.5-16.0); LYMPHOCYTES # (AUTO) 1.4 10^3/uL (1.0-4.0); LYMPHOCYTES % (AUTO) 10 % (12-44); MEAN CORPUSCULAR HEMOGLOBIN 29 pg (25-34); MEAN CORPUSCULAR HGB CONC 32 g/dL (32-36); MEAN CORPUSCULAR VOLUME 89 fL (80-99); MEAN PLATELET VOLUME 9.1 fL (9.0-12.2); MONOCYTES # (AUTO) 1.5 10^3/uL (0.0-1.0); MONOCYTES % (AUTO) 11 % (0-12); NEUTROPHILS % (AUTO) 75 % (42-75); PLATELET COUNT 300 10^3/uL (130-400); WHITE BLOOD COUNT 13.4 10^3/uL (4.3-11.0)
[2022-10-08 00:16] LABS: ALANINE AMINOTRANSFERASE 7 U/L (0-55); ALKALINE PHOSPHATASE 105 U/L (40-136); BILIRUBIN,TOTAL 0.3 MG/DL (0.1-1.0); BUN/CREATININE RATIO 12; CALCIUM 9.1 MG/DL (8.5-10.1); CARBON DIOXIDE 27 MMOL/L (21-32); CHLORIDE 103 MMOL/L (98-107); CREATININE SERUM 0.83 MG/DL (0.60-1.30); GFR ESTIMATED 78; GLUCOSE 96 MG/DL (70-105); POTASSIUM 3.8 MMOL/L (3.6-5.0); SODIUM 135 MMOL/L (135-145)
[2022-10-08 00:17] LABS: TOTAL PROTEIN 7.5 GM/DL (6.4-8.2)
[2022-10-08] MEDS ORDERED: ACETAMINOPHEN 325 MG TABLET PO ONE (00:45)
[2022-10-08] MEDS ORDERED: BENZONATATE 100 MG (TESSALON) CAPSULE PO SCH (00:45)
[2022-10-08] MEDS ORDERED: BENZ100C18 PO (00:49)
[2022-10-08] MEDS ORDERED: GUAI120013 PO (00:49)
--- NOTE | 2022-10-08 00:49 | ED Cough/URI ---
General Chief Complaint: Respiratory Problems Stated Complaint: SOB Nursing Triage Note: Patient states that she began coughing and having shortness of breath 2 days ago. Patient is having a productive cough. Source: patient Exam Limitations: no limitations History of Present Illness Date Seen by Provider: Oct 08, 2022 Time Seen by Provider: 23:15 Initial Comments Patient is a 67-year-old female who presents with cough, sore throat, shortness of breath for 2 days. Patient has clear sputum production. No fever chills, nausea vomiting or sweats. No exertional chest pain or anginal equivalents. No leg pain or swelling. No other acute symptoms or complaints. Timing/Duration: other Severity/Quality: other Prior Episodes/Possible Cause: other Modifying Factors: Improves With Other Associated Symptoms: other Allergies and Home Medications Allergies Coded Allergies: No Known Drug Allergies (Unverified , 01/08/19) Patient Home Medication List Home Medication List Reviewed: Yes Albuterol Sulfate (Ventolin Hfa) 1 Puff Puff, 2 PUFF IH Q4H PRN for SHORTNESS OF BREATH Prescribed by: CJ EDWARDS on 01/10/19 1127 Cyclobenzaprine HCl (Cyclobenzaprine HCl) 10 Mg Tablet, 10 MG PO Q8H PRN for SPASMS Prescribed by: RAMILA DE JESUS on 01/22/20 1543 Diclofenac Sodium (Diclofenac Sodium) 75 Mg Tablet.dr, 75 MG PO BID Prescribed by: KATIANA SAHNI on 09/11/20 0130 Famotidine (Pepcid) 20 Mg Tablet, 20 MG PO BID Prescribed by: ANNA MARIE ORTEGA on 04/25/19 0028 Methylprednisolone (Medrol Dose pack) 4 Mg Tab, 4 MG PO UD Prescribed by: JAYLA CUEVAS on 05/03/19 1103 Prednisone (Prednisone) 20 Mg Tab, 30 MG PO BID Prescribed by: ANNA MARIE ORTEGA on 04/25/19 0028 Review of Systems Review of Systems Constitutional: see HPI EENTM: see HPI Respiratory: see HPI Cardiovascular: see HPI Gastrointestinal: see HPI Musculoskeletal: see HPI Skin: see HPI Psychiatric/Neurological: See HPI Hematologic/Lymphatic: See HPI Immunological/Allergic: see HPI All Other Systems Reviewed Negative Unless Noted: No Past Soblezn-Logiwr-Kjzolh Hx Patient Social History Tobacco Use?: Yes Tobacco type used: Cigarettes Smoking Status: Current Everyday Smoker Substance use?: No Alcohol Use?: No Pt feels they are or have been: No Immunizations Up To Date Tetanus Booster (TDap): Unknown Seasonal Allergies Seasonal Allergies: No Past Medical History Surgeries: Yes Section, Tubal Ligation Respiratory: Yes Asthma, COPD Cardiac: No Neurological: No Genitourinary: No Gastrointestinal: No Musculoskeletal: No Endocrine: No HEENT: No Cancer: No Psychosocial: No Integumentary: No Blood Disorders: No Family Medical History Patient reports no known family medical history. Physical Exam Vital Signs - First Documented 10/07/22 23:21 Temp 37.3 Pulse 104 Resp 18 B/P (MAP) 96/45 (62) Pulse Ox 98 O2 Delivery Room Air Capillary Refill : Less Than 3 Seconds Height: 5'7.00" Weight: 190lbs. 1.0oz. 86.082809bx; 39.00 BMI Method:Stated General Appearance: WD/WN, no apparent distress Eyes: Bilateral Eye Normal Inspection, Bilateral Eye PERRL, Bilateral Eye EOMI HEENT: PERRL/EOMI, normal ENT inspection, TMs normal, pharynx normal Neck: non-tender, full range of motion, supple Respiratory: lungs clear, normal breath sounds, no respiratory distress, respiratory distress Cardiovascular: normal peripheral pulses, regular rate, rhythm Gastrointestinal: non tender, soft Extremities: normal range of motion, non-tender Neurologic/Psychiatric: alert, normal mood/affect, oriented x 3 Focused Exam Sepsis Stage: Ruled Out Progress/Results/Core Measures Suspected Sepsis SIRS Temperature: Pulse: 104 Respiratory Rate: 18 Laboratory Tests 10/07/22 23:52: White Blood Count 13.4H Blood Pressure 96 /45 Mean: 62 Laboratory Tests 10/07/22 23:52: Creatinine 0.83, Platelet Count 300, Total Bilirubin 0.3 Results/Orders Lab Results Laboratory Tests Test 10/07/22 23:51 10/07/22 23:52 Range/Units Influenza Type A (RT-PCR) Not Detected Not Detecte Influenza Type B (RT-PCR) Not Detected Not Detecte SARS-CoV-2 RNA (RT-PCR) Not Detected Not Detecte White Blood Count 13.4 H 4.3-11.0 10^3/uL Red Blood Count 4.67 3.80-5.11 10^6/uL Hemoglobin 13.4 11.5-16.0 g/dL Hematocrit 42 35-52 % Mean Corpuscular Volume 89 80-99 fL Mean Corpuscular Hemoglobin 29 25-34 pg Mean Corpuscular Hemoglobin Concent 32 32-36 g/dL Red Cell Distribution Width 13.7 10.0-14.5 % Platelet Count 300 130-400 10^3/uL Mean Platelet Volume 9.1 9.0-12.2 fL Immature Granulocyte % (Auto) 0 % Neutrophils (%) (Auto) 75 42-75 % Lymphocytes (%) (Auto) 10 L 12-44 % Monocytes (%) (Auto) 11 0-12 % Eosinophils (%) (Auto) 3 0-10 % Basophils (%) (Auto) 1 0-10 % Neutrophils # (Auto) 10.0 H 1.8-7.8 10^3/uL Lymphocytes # (Auto) 1.4 1.0-4.0 10^3/uL Monocytes # (Auto) 1.5 H 0.0-1.0 10^3/uL Eosinophils # (Auto) 0.4 H 0.0-0.3 10^3/uL Basophils # (Auto) 0.1 0.0-0.1 10^3/uL Immature Granulocyte # (Auto) 0.1 0.0-0.1 10^3/uL Sodium Level 135 135-145 MMOL/L Potassium Level 3.8 3.6-5.0 MMOL/L Chloride Level 103 98-107 MMOL/L Carbon Dioxide Level 27 21-32 MMOL/L Anion Gap 5 5-14 MMOL/L Blood Urea Nitrogen 10 7-18 MG/DL Creatinine 0.83 0.60-1.30 MG/DL Estimat Glomerular Filtration Rate 78 BUN/Creatinine Ratio 12 Glucose Level 96 70-105 MG/DL Calcium Level 9.1 8.5-10.1 MG/DL Corrected Calcium 9.1 8.5-10.1 MG/DL Total Bilirubin 0.3 0.1-1.0 MG/DL Aspartate Amino Transf (AST/SGOT) 12 5-34 U/L Alanine Aminotransferase (ALT/SGPT) 7 0-55 U/L Alkaline Phosphatase 105 40-136 U/L Troponin I < 0.30 <0.30 NG/ML Total Protein 7.5 6.4-8.2 GM/DL Albumin 4.0 3.2-4.5 GM/DL My Orders Obey - DELICIA TROY DO Cbc With Automated Diff (10/07/22 23:31) Comprehensive Metabolic Panel (10/07/22 23:31) Chest 1 View Ap/Pa Only (10/07/22:31) Covid 19 Inhouse Test (10/07/22 23:31) Influenza A And B By Pcr (10/07/22:31) Isolation Central Supply Req (10/07/22:) Ns Iv 1000 Ml (Sodium Chloride 0.9%) (10/07/22 23:45) Troponin I Fs (10/07/22 23:31) Ed Iv/Invasive Line Start (10/08/22 00:05) Acetaminophen Tablet/Caplet (Tylenol T (10/08/22 00:45) Benzonatate Capsule (Tessalon Perles) (10/08/22 00:45) Vital Signs/I&O 10/07/22 23:21 Temp 37.3 Pulse 104 Resp 18 B/P (MAP) 96/45 (62) Pulse Ox 98 O2 Delivery Room Air Capillary Refill : Less Than 3 Seconds Blood Pressure Mean: 62 Departure Communication (Admissions) Chest x-ray: No acute cardiopulmonary disease Chest x-ray lab reviewed. No acute findings. Patient hypotensive on ED arrival. IV fluids given with proved blood pressure. Patient denies dizziness or lightheadedness upon standing. Symptoms are most consistent with viral meningitis. Recommendations are supportive care watchful waiting and PCP follow-up. Return precautions reviewed. Patient verbalizes understanding and agreement with discharge instructions prior to departure peer Impression Primary Impression: Acute bronchitis Disposition: 01 HOME, SELF-CARE Condition: Stable Departure-Patient Inst. Decision time for Depature: 00:47 Referrals: NATALIA ODOM MD (PCP/Family) Primary Care Physician Patient Instructions: Acute Bronchitis, Child (DC) Add. Discharge Instructions: You were evaluated in the emergency department for cough, shortness of breath and low blood pressure. Chest x-ray and lab were performed and are nondiagnostic. Your symptoms are consistent with viral bronchitis. Please go home and rest, increase fluids, and take Tylenol for cough and Mucinex and Tessalon as directed. Follow-up with your PCP in 3 to 5 days if symptoms persist. Return to the ED if new or concerning symptoms. All discharge instructions reviewed with patient and/or family. Voiced understanding. Scripts Benzonatate (TESSALON PERLES) 100 Mg Capsule 200 MG PO TID, #20 CAP Prov: DELICIA TROY DO 10/08/22 Guaifenesin (Mucinex) 1,200 Mg Tab.er.12h 1200 MG PO BID, #20 TAB Prov: DELICIA TROY DO 10/08/22 DELICIA TROY DO Oct 08, 2022 00:49
[2022-10-08 00:51] VITALS: BP 126/74
[2022-10-08] MEDS ORDERED: RT-ALBUTEROL HFA 8.5 GM INHALER IH PRN (01:00)
--- NOTE | 2022-10-08 08:48 | Diagnostic Imaging Report ---
CHEST 1 VIEW AP/PA ONLY Indication: Shortness of air Comparison: 01/08/2019 Findings: No focal airspace disease in the visualized lungs. No pleural effusion or pneumothorax. Normal cardiomediastinal silhouette. Impression: 1. No acute cardiopulmonary process by portable radiography. Dictated by: Dictated on workstation # [id number]
== END 2022-10-08 00:59 | disposition home or self-care (01) ==
LOC: EDUNIT# 23:21 → ER FS 23:23
DX: J20.9 Acute bronchitis, unspecified (principal); F17.210 Nicotine dependence, cigarettes, uncomplicated; Z20.822 Contact with and (suspected) exposure to COVID-19; Z28.310 Unvaccinated for COVID-19
CPT/HCPCS: 36415; 71045; 80053; 84484; 85025; 87636